=== PATIENT | female | born 1945 | race Caucasian/White ===

== ENCOUNTER 2017-12-31 08:36 | Day surgery (SDC) | payer MEDICARE, OTHER ==
[~2017-12-31] VITALS: Ht 157.5 cm; Wt 76.7 kg
[~2017-12-31 08:36] MED LIST: Adult Low Dose81 MG PO; LOSA50 PO; NEOPOLHYD OP; SERT50 PO
== END 2017-12-31 22:52 | disposition home or self-care (01) ==
LOC: ORSCMMR 08:36
PROVIDERS: Internal Medicine Gastroenterology
PROC: 0DBN8ZX Excision of Sigmoid Colon, Via Natural or Artificial Opening Endoscopic, Diagnostic (ICD-10-PCS; principal; 2017-12-31 09:30)
PROC: 0DBK8ZX Excision of Ascending Colon, Via Natural or Artificial Opening Endoscopic, Diagnostic (ICD-10-PCS; principal; 2017-12-31 09:30)
PROC: 0DBE8ZX Excision of Large Intestine, Via Natural or Artificial Opening Endoscopic, Diagnostic (ICD-10-PCS; principal; 2017-12-31 09:30)
PROC: 0DBL8ZX Excision of Transverse Colon, Via Natural or Artificial Opening Endoscopic, Diagnostic (ICD-10-PCS; principal; 2017-12-31 09:30)
DX: R19.4 Change in bowel habit (principal); D12.2 Benign neoplasm of ascending colon; K63.5 Polyp of colon; K52.9 Noninfective gastroenteritis and colitis, unspecified; R15.9 Full incontinence of feces; K57.30 Diverticulosis of large intestine without perforation or abscess without bleeding; I10 Essential (primary) hypertension; F41.8 Other specified anxiety disorders; Z79.899 Other long term (current) drug therapy; Z79.82 Long term (current) use of aspirin; F17.210 Nicotine dependence, cigarettes, uncomplicated
CPT/HCPCS: 88305; J7120

== ENCOUNTER 2021-12-31 16:10 | Inpatient (IN) | payer OTHER ==
[~2021-12-31] VITALS: Ht 157.5 cm; Wt 73.0 kg
[2021-12-31 16:39] LABS: BASOPHILS ABSOLUTE AUTO 0.07 K/mm3 (0.00-0.23); BASOPHILS PERCENT AUTO 1 % (0-2); EOSINOPHILS PERCENT AUTO 1 % (0-6); Hematocrit 46.3 % (33.0-51.0); IMMATURE GRAN ABSOLUTE AUTO 0.04 K/mm3 (0.00-0.10); IMMATURE GRAN PERCENT AUTO 0 % (0-1); LYMPHOCYTES ABSOLUTE AUTO 2.57 K/mm3 (0.84-5.20); LYMPHOCYTES PERCENT AUTO 24 % (21-46); MONOCYTES ABSOLUTE AUTO 0.68 K/mm3 (0.16-1.47); MONOCYTES PERCENT AUTO 6 % (4-13); Mean Corpuscular HGB 29.4 pg (26.0-34.0); Mean Corpuscular HGB Conc 32.4 g/dL (31.5-36.5); Mean Corpuscular Volume 91 fL (80-100); Mean Platelet Volume 11.8 fL (9.1-12.4); NEUTROPHILS ABSOLUTE AUTO 7.13 K/mm3 (1.96-9.15); NEUTROPHILS PERCENT AUTO 67 % (41-73); Platelet Count 216 K/mm3 (150-400); RDW Coefficient Variation 13.2 % (11.7-14.2); RDW Standard Deviation 44.6 fL (35.1-46.3); White Blood Cell Count 10.59 K/mm3 (4.00-11.30)
[2021-12-31 16:58] LABS: Alanine Aminotransfer (ALT/SGP 22 U/L (12-78); Albumin, Blood 3.3 g/dL (3.4-5.0); Albumin/Globulin Ratio 0.9 (0.8-1.8); Alk Phos 89 U/L (50-136); Anion Gap 5 mmol/L (6-16); Aspartate Aminotrans (AST/SGOT 11 U/L (12-37); Bilirubin, Total 0.3 mg/dL (0.1-1.0); Blood Urea Nitrogen 17 mg/dL (8-24); Bun/Creatinine Ratio 20.4 (12.0-20.0); CO2, Blood 29 mmol/L (21-32); Chloride, Blood 108 mmol/L (98-108); Creatinine, Blood 0.83 mg/dL (0.40-1.00); Globulin, Blood 3.6 g/dL (2.2-4.0); Glomerular Filtration Rate >60 (60-); Glucose, Blood 141 mg/dL (70-99); Sodium, Blood 142 mmol/L (136-145); Total Protein, Blood 6.9 g/dL (6.4-8.2)
[2021-12-31 17:24] LABS: Source, Urine Clean Catch
[2021-12-31] MEDS ORDERED: ATOR20 PO (17:24)
[2021-12-31 17:30] LABS: Appearance, Urine Clear (Clear); Bilirubin, Urine Neg (Neg); Blood, Urine 1+ (Neg); Color, Urine Yellow (P-Yellow); Glucose Qualitative, Urine Neg (Neg); Ketones, Urine Neg (Neg); Leukocyte Esterase, Urine 2+ (Neg); Nitrite, Urine Neg (Neg); Protein, Urine Neg (Neg); Specific Gravity, Urine 1.025 (1.003-1.022); Urobilinogen, Urine 1+ (Normal)
[2021-12-31 17:48] LABS: Red Blood Cells, Urine 0-2 /hpf (0-2); Squamous Epithelial Cells Few /hpf (Few)
[2021-12-31 17:49] LABS: Bacteria Many /hpf; Mucus Mod (0-Heavy)
[2021-12-31 21:42] LABS: Influenza A, PCR NEGATIVE (NEGATIVE); Influenza B, PCR NEGATIVE (NEGATIVE); Resp Syncytial Virus, PCR NEGATIVE (NEGATIVE)
[2021-12-31 21:50] LABS: SARS-Cov-2 (COVID-19) PCR, MMC POSITIVE (NEGATIVE)
[2022-01-01 05:06] LABS: BASOPHILS ABSOLUTE AUTO 0.04 K/mm3 (0.00-0.23); BASOPHILS PERCENT AUTO 0 % (0-2); EOSINOPHILS ABSOLUTE AUTO 0.09 K/mm3 (0.00-0.68); EOSINOPHILS PERCENT AUTO 1 % (0-6); Hematocrit 46.4 % (33.0-51.0); Hemoglobin 14.7 g/dL (11.5-16.0); IMMATURE GRAN ABSOLUTE AUTO 0.06 K/mm3 (0.00-0.10); IMMATURE GRAN PERCENT AUTO 1 % (0-1); LYMPHOCYTES ABSOLUTE AUTO 1.46 K/mm3 (0.84-5.20); LYMPHOCYTES PERCENT AUTO 13 % (21-46); MONOCYTES ABSOLUTE AUTO 0.27 K/mm3 (0.16-1.47); MONOCYTES PERCENT AUTO 2 % (4-13); Mean Corpuscular HGB 29.3 pg (26.0-34.0); Mean Corpuscular HGB Conc 31.7 g/dL (31.5-36.5); Mean Corpuscular Volume 93 fL (80-100); Mean Platelet Volume 11.8 fL (9.1-12.4); NEUTROPHILS ABSOLUTE AUTO 9.73 K/mm3 (1.96-9.15); NEUTROPHILS PERCENT AUTO 84 % (41-73); Platelet Count 187 K/mm3 (150-400); RDW Coefficient Variation 13.5 % (11.7-14.2); RDW Standard Deviation 45.5 fL (35.1-46.3); Red Blood Cell Count 5.01 M/mm3 (3.80-5.20); White Blood Cell Count 11.65 K/mm3 (4.00-11.30)
[2022-01-01 05:46] LABS: Alanine Aminotransfer (ALT/SGP 22 U/L (12-78); Albumin, Blood 3.1 g/dL (3.4-5.0); Albumin/Globulin Ratio 0.8 (0.8-1.8); Alk Phos 88 U/L (50-136); Anion Gap 7 mmol/L (6-16); Aspartate Aminotrans (AST/SGOT 15 U/L (12-37); Bilirubin, Total 0.2 mg/dL (0.1-1.0); Blood Urea Nitrogen 17 mg/dL (8-24); Bun/Creatinine Ratio 29.4 (12.0-20.0); CHOL/HDL RATIO 3.5; CO2, Blood 25 mmol/L (21-32); Calcium, Blood 8.8 mg/dL (8.5-10.1); Chloride, Blood 109 mmol/L (98-108); Cholesterol 154 mg/dL (50-200); Creatinine, Blood 0.58 mg/dL (0.40-1.00); Globulin, Blood 3.7 g/dL (2.2-4.0); Glomerular Filtration Rate >60 (60-); Glucose, Blood 147 mg/dL (70-99); HDL Cholesterol 44 mg/dL (>39); Low Density Lipoprotein Chol 86 mg/dL (0-110); Potassium, Blood 4.4 mmol/L (3.5-5.5); Sodium, Blood 141 mmol/L (136-145); Total Protein, Blood 6.8 g/dL (6.4-8.2); Triglycerides 118 mg/dL (30-160); Very Low Density Lipoprot Chol 23 mg/dL (6-32)
--- NOTE | 2022-01-01 06:02 | NUR ---
SHIFT SUMMARY: PATIENT ADMITTED FROM ED CALM, COOPERATIVE, AND PLEASANT. SLIGHT LEFT SIDED FACIAL DROP NO OTHER NEURO DEFECITS PRESENT. 2LNC SAT 100% REMOVED NC SAT 98% EXP WHEEZES NOTED. DYSPNEA WITH EXERTION. COARSE NON PRODUCTIVE COUGH. TELE=NSR/SB. LAB CALLED POSITIVE COVID RESULTS. MD CONTACTED AND NEW ORDERS OBTAINED. PATIENT IS NOW ON CONTINIOUS BIOX. SATS HAVE REMAINED > 94% ON RA. MEDICATIONS ADMINSITERED PER EMAR. PRN GUAIFENESIN GIVEN. STAT DDIMER RESULT 0.74 CALLED INTO [facility]TER MD PER DR. MALAGON REQUEST WHEN ORDER RECEIVED. NO NEW ORDERS.
--- NOTE | 2022-01-01 17:38 | NUR ---
PATIENT ADMITTED WITH LEFT SIDED FACIAL DROOP- WAS FOUND TO HAVE COVID. CT DETERMINED THAT THERE IS A SUBACUTE INFARCT. PATIENT HAD AN ECHO TODAY, RESULTS SHOW SOME CARDIAC CONDITIONS. PT WAS UP AND WORKED WITH THE PATIENT TODAY. THEY SAID THAT SHE "DID GREAT". SHE SAT UP IN THE CHAIR FOR A TIME AFTER HER PT SESSION. THE PATIENTS OXYGEN LEVEL SUSTAINS AT NORMAL WITH NO OXYGEN ON. SHE REMOVES HER NC FREQUENTLY. LUNGS DO SOUND CONGESTED UPON AUSCULTATION AND SHE IS COUGHING CLEAR SPUTUM. PATIENTS BP HAS BEEN ELEVATED. EDUCATION ON THE RELATIONSHIP BETWEEN HTN AND STROKE WAS VERBALLY DISCUSSED WITH PATIENT. CAROTOID DUPLEX STUDY WAS DONE TODAY, WITH ABNORMALITIES FOUND. PATIENT REMAINS IN [facility] AND WOULD LIKE TO KNOW WHEN SHE MAY POSSIBLY BE DISCHARGED.
--- NOTE | 2022-01-02 05:46 | NUR ---
SHIFT SUMMARY: NO SIGNIFICANT EVENTS ON NOC. PATIENT REAMINS WITH COUGH SCANT SPUTUM PRODUCED. EXP WHEEZE NOTED TO BILATERAL BASES, COARSE UPPER LOBES. NASAL DRAINAGE. RA-2L SAT >94%. NO COMPLAINTS OF PAIN, EXPERIINCED INDIGESTION MD CONTACTED AND NEW ORDER OBTAINED, TREATED PER EMAR. PATIENT IS EAGER TO DC.
[2022-01-02] MEDS ORDERED: PROAIR DIGIHAL90 MCG INH (12:13)
[2022-01-02] MEDS ORDERED: Aspir 8181 MG PO (12:14)
[2022-01-02] MEDS ORDERED: Mucus Relief400 MG PO (12:15)
[2022-01-02] MEDS ORDERED: LOSA50 PO (12:17)
--- NOTE | 2022-01-02 17:40 | NUR ---
PATIENT DISCHARGED THIS SHIFT AT 1630 VIA WHEELCHAIR TO CAR WITH FAMILY. PATIENT HAD OXYGEN AND BELONGINGS WITH THEM AT DISCHARGE. THE PATIENT UNDERSTOOD DISCHARGE MEDICATIONS AND INSTRUCTIONS GIVEN. VSS. NOTHING FURTHER TO REPORT.
== END 2022-01-02 17:02 | disposition home or self-care (01) | DRG 64 ==
LOC: ER 16:10 → MEDS 20:10
PROVIDERS: Emergency Medicine; Physician Assistant; ADMIT Internal Medicine
PROC: 8E0ZXY6 Isolation (ICD-10-PCS; principal; 2021-12-31)
PROC: 3E03329 Introduction of Other Anti-infective into Peripheral Vein, Percutaneous Approach (ICD-10-PCS; 2021-12-31)
PROC: XW033E5 Introduction of Remdesivir Anti-infective into Peripheral Vein, Percutaneous Approach, New Technology Group 5 (ICD-10-PCS; 2021-12-31)
PROC: 3E0DX3Z Introduction of Anti-inflammatory into Mouth and Pharynx, External Approach (ICD-10-PCS; 2021-12-31)
DX: I63.9 Cerebral infarction, unspecified (principal); U07.1 COVID-19; I10 Essential (primary) hypertension; E78.5 Hyperlipidemia, unspecified; Z66 Do not resuscitate; I65.22 Occlusion and stenosis of left carotid artery; J44.9 Chronic obstructive pulmonary disease, unspecified; R29.810 Facial weakness; F17.210 Nicotine dependence, cigarettes, uncomplicated; R09.02 Hypoxemia; F32.A Depression, unspecified; F41.9 Anxiety disorder, unspecified; Z90.710 Acquired absence of both cervix and uterus; Z79.899 Other long term (current) drug therapy; Z88.2 Allergy status to sulfonamides
CPT/HCPCS: 0241U; 36415; 70450; 71045; 80053; 80061; 81001; 82947; 83036; 84443; 85025; 85379; 87077; 87086; 87186; 93005; 93010; 93306; 93880; 94640; 94760; 94761; 94762; 96374; 97116; 97162; 99285-25; A9270; J0248; J0696; J1650

== ENCOUNTER 2022-08-03 10:05 | Day surgery (SDC) | payer MEDICARE, OTHER ==
[~2022-08-03] VITALS: Ht 157.5 cm; Wt 70.7 kg
[~2022-08-03 10:05] MED LIST changes: +ATOR20 PO; +Aspir 8181 MG PO; +Mucus Relief400 MG PO; +PROAIR DIGIHAL90 MCG INH
[2022-08-03] MEDS ORDERED: XARELTO20 MG PO (10:28)
[2022-08-03] MEDS ORDERED: METO50ER PO (10:28)
--- NOTE | 2022-08-03 14:15 | NUR ---
08/03/22 1415 Man Salas PATIENT'S BLOOD PRESSURE RETURNED TO PRE-OP LEVELS PRIOR TO DISCHARGE, BUT PATIENT WAS STILL HYPERTENSIVE. ADVISED TO MONITOR BLOOD PRESSURE AND FOLLOW UP WITH PCP.
== END 2022-08-03 12:30 | disposition home or self-care (01) ==
LOC: ORSCSDS 10:05
PROVIDERS: Ophthalmology
PROC: 08RJ3JZ Replacement of Right Lens with Synthetic Substitute, Percutaneous Approach (ICD-10-PCS; principal; 2022-08-03 11:30)
DX: H25.11 Age-related nuclear cataract, right eye (principal); I10 Essential (primary) hypertension; J44.9 Chronic obstructive pulmonary disease, unspecified; F17.210 Nicotine dependence, cigarettes, uncomplicated; F41.8 Other specified anxiety disorders; Z86.73 Personal history of transient ischemic attack (TIA), and cerebral infarction without residual deficits; Z86.16 Personal history of COVID-19; Z79.899 Other long term (current) drug therapy; Z79.01 Long term (current) use of anticoagulants; Z79.82 Long term (current) use of aspirin
CPT/HCPCS: J2001; J2250; J3010; J3301; J7040; V2632

== ENCOUNTER 2022-08-17 10:21 | Day surgery (SDC) | payer MEDICARE, OTHER ==
[~2022-08-17] VITALS: Ht 157.5 cm; Wt 69.4 kg
[~2022-08-17 10:21] MED LIST changes: +METO50ER PO; +XARELTO20 MG PO
--- NOTE | 2022-08-17 10:58 | NUR ---
08/17/22 1058 Eloise Estrada INTO LEFT EYE AT 1042 PLEDGET INTO LEFT EYE AT 1044 INSERTED BY NABEEL ACUNA
--- NOTE | 2022-08-17 12:35 | NUR ---
08/17/22 1235 Yariel Hunt LATE ENTRY, PT D/CD AT 1207, NO C/O PAIN , NV, DIZINESS, VS WNL, RESP CTA ON RA, PERSONAL BELONGINGS GIVEN BACK TO PT, PT D/C'D VIA WC TO CAR DAUGHTER, PT VU D/C INSTRUCTIONS. DENIES ANY OTHER NEEDS.
== END 2022-08-17 12:07 | disposition home or self-care (01) ==
LOC: ORSCSDS 10:21
PROVIDERS: Ophthalmology
PROC: 08DK3ZZ Extraction of Left Lens, Percutaneous Approach (ICD-10-PCS; principal; 2022-08-17 11:30)
DX: H25.12 Age-related nuclear cataract, left eye (principal); I10 Essential (primary) hypertension; J44.9 Chronic obstructive pulmonary disease, unspecified; I63.9 Cerebral infarction, unspecified; I49.9 Cardiac arrhythmia, unspecified; K21.9 Gastro-esophageal reflux disease without esophagitis; Z86.16 Personal history of COVID-19; F41.8 Other specified anxiety disorders; Z79.82 Long term (current) use of aspirin; Z79.899 Other long term (current) drug therapy
CPT/HCPCS: J2001; J2250; J3010; J3301; J7040; V2632

== ENCOUNTER 2022-11-15 15:30 | Emergency (ER) | payer MEDICARE, OTHER ==
[~2022-11-15] VITALS: Ht 167.6 cm; Wt 71.2 kg
[2022-11-15 16:58] LABS: BASOPHILS ABSOLUTE AUTO 0.05 K/mm3 (0.00-0.23); BASOPHILS PERCENT AUTO 1 % (0-2); EOSINOPHILS ABSOLUTE AUTO 0.11 K/mm3 (0.00-0.68); EOSINOPHILS PERCENT AUTO 1 % (0-6); Hemoglobin 6.7 g/dL (11.5-16.0); IMMATURE GRAN ABSOLUTE AUTO 0.02 K/mm3 (0.00-0.10); IMMATURE GRAN PERCENT AUTO 0 % (0-1); LYMPHOCYTES ABSOLUTE AUTO 1.87 K/mm3 (0.84-5.20); LYMPHOCYTES PERCENT AUTO 21 % (21-46); MONOCYTES PERCENT AUTO 6 % (4-13); Mean Corpuscular HGB 25.8 pg (26.0-34.0); Mean Corpuscular HGB Conc 29.1 g/dL (31.5-36.5); Mean Corpuscular Volume 89 fL (80-100); Mean Platelet Volume 11.6 fL (9.1-12.4); NEUTROPHILS ABSOLUTE AUTO 6.19 K/mm3 (1.96-9.15); NEUTROPHILS PERCENT AUTO 71 % (41-73); Platelet Count 285 K/mm3 (150-400); RDW Coefficient Variation 17.4 % (11.7-14.2); RDW Standard Deviation 55.7 fL (35.1-46.3); White Blood Cell Count 8.74 K/mm3 (4.00-11.30)
[2022-11-15 17:29] LABS: Albumin/Globulin Ratio 0.8 (0.8-1.8); Bilirubin, Total 0.3 mg/dL (0.1-1.0); Bun/Creatinine Ratio 34.3 (12.0-20.0); Calcium, Blood 8.4 mg/dL (8.5-10.1); Creatinine, Blood 0.67 mg/dL (0.40-1.00); Globulin, Blood 3.6 g/dL (2.2-4.0); Total Protein, Blood 6.6 g/dL (6.4-8.2)
[2022-11-15 17:58] LABS: Percent Saturation 8.1 % (15.0-50.0)
[2022-11-15 21:06] LABS: Influenza A, PCR NEGATIVE (NEGATIVE); Influenza B, PCR NEGATIVE (NEGATIVE); Resp Syncytial Virus, PCR NEGATIVE (NEGATIVE); SARS-Cov-2 (COVID-19) PCR, MMC NEGATIVE (NEGATIVE)
== END 2022-11-15 22:20 | disposition short-term general hospital (02) ==
LOC: ER 15:30
PROVIDERS: Physician Assistant; Student in an Organized Health Care Education/Training Program
DX: D62 Acute posthemorrhagic anemia (principal); R47.81 Slurred speech; R29.810 Facial weakness; T45.515A Adverse effect of anticoagulants, initial encounter; F17.200 Nicotine dependence, unspecified, uncomplicated; Z86.73 Personal history of transient ischemic attack (TIA), and cerebral infarction without residual deficits; Z79.02 Long term (current) use of antithrombotics/antiplatelets; Z79.82 Long term (current) use of aspirin
CPT/HCPCS: 0241U; 36415; 70450; 80053; 82607; 82728; 82746; 83540; 83550; 85025; 86850; 86900; 86901; 86923; 93005; 93010; A9270; C9113; J7030; P9016

== ENCOUNTER 2023-02-12 15:18 | Inpatient (IN) | payer MEDICARE, OTHER ==
[~2023-02-12] VITALS: Ht 157.5 cm; Wt 66.7 kg
[~2023-02-12 15:18] MED LIST changes: +LOSA25 PO
[2023-02-12 16:17] LABS: Magnesium, Blood 2.4 mg/dL (1.6-2.4); Phosphorus, Blood 3.1 mg/dL (2.5-4.9)
[2023-02-12 22:08] VITALS: BP 106/60
[2023-02-13 01:58] LABS: Calcium, Blood 8.8 mg/dL (8.5-10.1); Creatinine, Blood 0.69 mg/dL (0.40-1.00); Potassium, Blood 3.9 mmol/L (3.5-5.5)
[2023-02-13 04:46] VITALS: BP 107/69
[2023-02-13 07:45] VITALS: BP 146/74
--- NOTE | 2023-02-13 07:58 | NUR ---
SHIFT SUMMARY PT IS A/Ox4 AND IS COOPERATIVE WITH CARE PROVIDED BY MEMBERS OF STAFF. ANSWERS QUESTIONS APPROPRIATELY AND ABLE TO MAKE NEEDS KNOWN. NO ACUTE EVENTS OVER NIGHT. MAINTAINS SPO2 >90% ON RA WITH SOB NOTED WITH EXERTION, BUT RECOVERS QUICKLY. PT REPORTS SHE HAS BEEN A 1.5PPD SMOKER FOR 50'S BUT HAS RECENTLY QUIT THIS LAST WEEK. CARDIAC BOWEN, PT HAS BEEN AFIB 110'S-120'S WITH THE OCCASTIONAL TOUCH INTO THE 130-140'S ESPECIALLY WITH ABULATION, BUT DOES NOT SUSTAIN WHEN AT REST. NO C/O OF CP OR PRESSURE T/O THE NIGHT. EDEMA NOTED IN LLE NOTED. SBP RANGING IN THE 100-110'S. ABLE TO AMBULATE TO BSC WITH SBA. NO NEW ORDERS AT THIS TIME. WILL REPORT TO DAY SHIFT RN. SHELTON T/O THE SHIFT
[2023-02-13 11:38] VITALS: BP 127/91
[2023-02-13 14:30] VITALS: BP 114/64
[2023-02-13 16:37] VITALS: BP 105/75
--- NOTE | 2023-02-13 18:01 | NUR ---
SHIFT SUMMARY; ASSUMED CARE AT 0700. A/A/OX4, REPOSITIONS SELF IN BED NEEDED, SBA TO BEDSIDE COMMODE MULTIPLE TIMES DURING SHIFT. REMAINS IN AFIB WITH HR 120-140'S DURING SHIFT. MEDICATED PER ORDERS FROM DR. JEAN BAPTISTE WITH LOPRESSOR THEN CARDIZEM BOLUS WITH NO RESULTS. CARDIZEM DRIP STARTED PER ORDERS WILL TITRATE ORDERED. CARDIZEM INCREASED TO 20ML/HR WITH HR REMAINING 120-140. DR. JEAN BAPTISTE NOTIFIED, CARIOLOGY CONSULT CALLED IN. EVALUATED TO SHIP ERECTOR IN AFTERNOON. CONTINUE WITH CARDIZEM, WILL ADJUST LASIX. EDEMA 4+ BLE, DENIES CP, SOB AT TIMES WITH WHEEZING. BREATHING TREATMENTS PER EMAR. PLEASANT AND COOPERATIE WITH CARE, WILL CONTINUE TO MONITOR AND TREAT UNTIL CHANGE OF SHIFT.
[2023-02-13 19:56] VITALS: BP 105/64
[2023-02-14 04:11] LABS: Albumin, Blood 2.9 g/dL (3.4-5.0); Anion Gap 2 mmol/L (6-16); Blood Urea Nitrogen 34 mg/dL (8-24); Bun/Creatinine Ratio 40.8 (12.0-20.0); CO2, Blood 27 mmol/L (21-32); Calcium, Blood 8.6 mg/dL (8.5-10.1); Chloride, Blood 110 mmol/L (98-108); Creatinine, Blood 0.83 mg/dL (0.40-1.00); Glomerular Filtration Rate 73 (60-); Glucose, Blood 117 mg/dL (70-99); Magnesium, Blood 2.1 mg/dL (1.6-2.4); Potassium, Blood 3.5 mmol/L (3.5-5.5); Sodium, Blood 139 mmol/L (136-145)
[2023-02-14 05:16] VITALS: BP 114/98
--- NOTE | 2023-02-14 05:35 | NUR ---
SHIFT SUMMARY A/OX4, SBA TO BSC. TELE AFIB 120-140S, CARDIZEM GTT AT 20 T/O SHIFT. DENIES CHEST PAIN/PRESSURE. SPO2 >92% ON RA. VSS, NO ACUTE CHANGES AT THIS TIME. BED IN LOWEST POSITION WITH CALL LIGHT IN REACH. WILL CONTINUE TO MONITOR AND REPORT TO ONCOMING RN.
[2023-02-14 07:38] VITALS: BP 111/80
[2023-02-14 12:19] VITALS: BP 103/76
[2023-02-14 15:59] VITALS: BP 103/84
--- NOTE | 2023-02-14 16:08 | NUR ---
TELEPHONE CALL TO DR. MARTINEZ, POSSIBLE 12 BEAT RUN OF VTACH PER TELE. VERBAL ORDER TO STOP CARDIZEM DRIP AT THIS TIME. CURRENT HR 70-90, WILL CONTINUE TO MONITOR.
--- NOTE | 2023-02-14 17:12 | NUR ---
SHIFT SUMMARY; ASSUMED CARE AT 0700. A/A/OX4, HR REMAINS 120-140 AFIB. DENIES CP OR SOB. L/S DIM T/O. 20ML/HR CARDIZEM IV DRIP AT START OF SHIFT, DECREASED TO 10ML/HR IN AFTERNOON FOR HR 90-115. 12 BEAT RUN OF VTACH AND HR TOUCHING DOWN TO 60'S THEN BACK UP TO 90'S. NOTIFIED CARDIOLOGY. CARDIZEM IV STOPPED PER VERBAL ORDER FROM DR. SOLORZANO. USES BEDSIDE COMMODE WITH SBA, REPOSITIONS SELF IN BED, NO ACUTE DISTRESS. WILL CONTINUE TO MONITOR AND TREAT UNTIL CHANGE OF SHIFT.
[2023-02-14 20:27] VITALS: BP 103/65
[2023-02-14 23:10] VITALS: BP 141/89
[2023-02-15 03:09] VITALS: BP 111/89
[2023-02-15 05:18] LABS: Anion Gap 3 mmol/L (6-16); Blood Urea Nitrogen 39 mg/dL (8-24); Bun/Creatinine Ratio 41.4 (12.0-20.0); CO2, Blood 27 mmol/L (21-32); Calcium, Blood 8.5 mg/dL (8.5-10.1); Chloride, Blood 110 mmol/L (98-108); Creatinine, Blood 0.94 mg/dL (0.40-1.00); Glomerular Filtration Rate 63 (60-); Glucose, Blood 112 mg/dL (70-99); Magnesium, Blood 2.2 mg/dL (1.6-2.4); Phosphorus, Blood 5.4 mg/dL (2.5-4.9); Potassium, Blood 3.7 mmol/L (3.5-5.5); Sodium, Blood 140 mmol/L (136-145)
--- NOTE | 2023-02-15 06:19 | NUR ---
PATIENT AOX4 AND FOLLOWS COMMANDS. AFIB RVR. DILT GTT RESTARTED OVERNIGHT AND TITRATED TO 20. PRN METOPROLOL GIVEN X2. NO PAUSES OR RUNS OF VTACH. 2L NC. PATIENT TOLERATING DIET WITHOUT N/V.
[2023-02-15 07:44] VITALS: BP 107/63
[2023-02-15 11:57] VITALS: BP 89/59
[2023-02-15 15:16] VITALS: BP 102/72
--- NOTE | 2023-02-15 18:05 | NUR ---
SHIFT SUMMARY; ASSUMED CARE AT 0700. A/A/OX4 DURING SHIFT. REPOSITIONS SELF NEEDED, SBA TO COMMODE. CARDIZEM INFUSING AT 20MG/HR AT START OF SHIFT, TITRATED DOWN TO 10ML/HR IN AFTERNOON. HR 90-110, A FIB. EVALUATED BY BOSOM PRESSER TODAY, WILL PLAN FOR PACEMAKER SUNDAY. BLOOD PRESSURE STABLE, 2L 02 VIA NC FOR FEELING SOB, SATS 97%. L/S DIM T/O. CONTINUING LASIX PER EMAR. NO ACUTE CHANGES, WILL CONTINUE TO MONITOR AND TREAT UNTIL CHANGE OF SHIFT.
[2023-02-15 20:40] VITALS: BP 120/76
[2023-02-16] VITALS (10 sets, daily range): BP systolic 71–132; BP diastolic 50–86
[2023-02-16 04:38] LABS: Albumin, Blood 2.9 g/dL (3.4-5.0); Anion Gap 1 mmol/L (6-16); Blood Urea Nitrogen 37 mg/dL (8-24); Bun/Creatinine Ratio 45.3 (12.0-20.0); CO2, Blood 32 mmol/L (21-32); Calcium, Blood 8.6 mg/dL (8.5-10.1); Chloride, Blood 107 mmol/L (98-108); Creatinine, Blood 0.82 mg/dL (0.40-1.00); Glomerular Filtration Rate 74 (60-); Glucose, Blood 107 mg/dL (70-99); Phosphorus, Blood 3.7 mg/dL (2.5-4.9); Potassium, Blood 3.5 mmol/L (3.5-5.5); Sodium, Blood 140 mmol/L (136-145)
--- NOTE | 2023-02-16 04:52 | NUR ---
NO CHANGES OVERNIGHT, VSS, TMAX 99.9, CARDIZEM GTT AT 10
[2023-02-16 08:16] LABS: Hematocrit 29.7 % (33.0-51.0); Hemoglobin 8.6 g/dL (11.5-16.0); Mean Platelet Volume 10.1 fL (9.1-12.4); Platelet Count 257 K/mm3 (150-400)
[2023-02-16 08:37] LABS: International Normalized Ratio 1.18; Prothrombin Time Results 12.3 Sec (9.7-11.5)
[2023-02-16 08:41] LABS: Anti-Xa UFH, PHA Monitoring 1.06 IU/mL
--- NOTE | 2023-02-16 14:33 | NUR ---
PAUSE/CARDIZEM STANDBY CALL FROM [employer] REPORTING 2.66 SEC PAUSE. MONITOR SHOWING AFIB HR 70'S-110'S. PT DENIES SYMPTOMS OTHER THAN IRRITIABILITY. CARDIZEM GTT RUNNING AT 5ML/HR PLACED ON STANDBY. VSS.
--- NOTE | 2023-02-16 18:19 | NUR ---
END OF SHIFT PT A&O x4. VSS. SPO2 >92% ON 2L N/C. NO C/O CP OR SOB AT THIS TIME. AFIB HR 70'S-110'S. HEPARIN GTT INFUSING PER ORDERS. CARDIZEM GTT REMAINS ON STANDBY. PT 1 PERSON ASSIST TO BSC.
[2023-02-17 02:07] LABS: Albumin, Blood 2.9 g/dL (3.4-5.0); Anion Gap 1 mmol/L (6-16); BASOPHILS ABSOLUTE AUTO 0.08 K/mm3 (0.00-0.23); BASOPHILS PERCENT AUTO 1 % (0-2); Blood Urea Nitrogen 29 mg/dL (8-24); Bun/Creatinine Ratio 39.8 (12.0-20.0); CO2, Blood 33 mmol/L (21-32); Chloride, Blood 106 mmol/L (98-108); Creatinine, Blood 0.73 mg/dL (0.40-1.00); EOSINOPHILS ABSOLUTE AUTO 0.28 K/mm3 (0.00-0.68); EOSINOPHILS PERCENT AUTO 2 % (0-6); Glomerular Filtration Rate 85 (60-); Glucose, Blood 131 mg/dL (70-99); Hematocrit 31.8 % (33.0-51.0); Hemoglobin 9.3 g/dL (11.5-16.0); IMMATURE GRAN ABSOLUTE AUTO 0.14 K/mm3 (0.00-0.10); IMMATURE GRAN PERCENT AUTO 1 % (0-1); LYMPHOCYTES ABSOLUTE AUTO 2.25 K/mm3 (0.84-5.20); LYMPHOCYTES PERCENT AUTO 17 % (21-46); MONOCYTES ABSOLUTE AUTO 1.53 K/mm3 (0.16-1.47); MONOCYTES PERCENT AUTO 12 % (4-13); Mean Corpuscular HGB 22.3 pg (26.0-34.0); Mean Corpuscular HGB Conc 29.2 g/dL (31.5-36.5); Mean Corpuscular Volume 76 fL (80-100); Mean Platelet Volume 10.7 fL (9.1-12.4); NEUTROPHILS ABSOLUTE AUTO 8.81 K/mm3 (1.96-9.15); NEUTROPHILS PERCENT AUTO 67 % (41-73); Phosphorus, Blood 3.1 mg/dL (2.5-4.9); Platelet Count 257 K/mm3 (150-400); Potassium, Blood 3.6 mmol/L (3.5-5.5); RDW Coefficient Variation 18.6 % (11.7-14.2); RDW Standard Deviation 51.2 fL (35.1-46.3); Red Blood Cell Count 4.17 M/mm3 (3.80-5.20); Sodium, Blood 140 mmol/L (136-145); White Blood Cell Count 13.09 K/mm3 (4.00-11.30)
--- NOTE | 2023-02-17 06:19 | NUR ---
10L UO IN 24 HR, 2LPM NC FOR PT COMFORT, VSS, TMAX 100.5, HEPARIN GTT AT 17 UNITS, AFIB 90'S TO 110'S
[2023-02-17 07:34] VITALS: BP 126/95
[2023-02-17 11:16] VITALS: BP 103/67
[2023-02-17 15:11] VITALS: BP 119/63
--- NOTE | 2023-02-17 17:37 | NUR ---
SHIFT SUMMARY PT A&O X4. VSS. SPO2 >92% ON 2L N/C. AFIB WITH HR OF 70'S-110'S. NO C/O CHEST PAIN OR PRESSURE. HEPARIN GTT INFUSING PER ORDERS. PT IS 1 PERSON STANDBY ASSIST TO BSC. PT HAS NO OTHER COMPLAINTS.
[2023-02-17 20:11] VITALS: BP 121/74
[2023-02-17 23:37] VITALS: BP 121/65
[2023-02-18 03:54] VITALS: BP 91/61
[2023-02-18 04:44] LABS: BASOPHILS PERCENT AUTO 1 % (0-2); EOSINOPHILS PERCENT AUTO 1 % (0-6); Hematocrit 35.2 % (33.0-51.0); Hemoglobin 10.2 g/dL (11.5-16.0); IMMATURE GRAN ABSOLUTE AUTO 0.09 K/mm3 (0.00-0.10); IMMATURE GRAN PERCENT AUTO 1 % (0-1); LYMPHOCYTES ABSOLUTE AUTO 2.64 K/mm3 (0.84-5.20); LYMPHOCYTES PERCENT AUTO 19 % (21-46); MONOCYTES ABSOLUTE AUTO 1.81 K/mm3 (0.16-1.47); MONOCYTES PERCENT AUTO 13 % (4-13); Mean Corpuscular HGB 22.1 pg (26.0-34.0); Mean Corpuscular Volume 76 fL (80-100); Mean Platelet Volume 10.7 fL (9.1-12.4); NEUTROPHILS ABSOLUTE AUTO 9.18 K/mm3 (1.96-9.15); NEUTROPHILS PERCENT AUTO 66 % (41-73); Platelet Count 278 K/mm3 (150-400); RDW Coefficient Variation 18.7 % (11.7-14.2); Red Blood Cell Count 4.61 M/mm3 (3.80-5.20); White Blood Cell Count 14.02 K/mm3 (4.00-11.30)
[2023-02-18 05:04] LABS: Albumin, Blood 2.9 g/dL (3.4-5.0); Anion Gap 0 mmol/L (6-16); Blood Urea Nitrogen 23 mg/dL (8-24); Bun/Creatinine Ratio 33.2 (12.0-20.0); CO2, Blood 33 mmol/L (21-32); Calcium, Blood 8.9 mg/dL (8.5-10.1); Chloride, Blood 104 mmol/L (98-108); Creatinine, Blood 0.69 mg/dL (0.40-1.00); Glomerular Filtration Rate 90 (60-); Glucose, Blood 110 mg/dL (70-99); Phosphorus, Blood 3.4 mg/dL (2.5-4.9); Potassium, Blood 3.7 mmol/L (3.5-5.5); Sodium, Blood 137 mmol/L (136-145)
--- NOTE | 2023-02-18 06:42 | NUR ---
SHIFT SUMMARY PT A&Ox4, CALLS AND COMMUNICATES NEEDS APPROPRIATELY. BP STABLE, AFIB 80-110's, DENIES CP/PRESSURE. SpO2> 92% 2L VIA NC, DENIES SOB. PT SBA TO BSC FOR VOIDS, NO BM THIS SHIFT. PT WITH URINARY FREQUENCY AT START OF SHIFT SECONDARY TO LASIX. HEPARIN gtt @ 17. NO OTHER EVENTS, WILL REPORT TO ONCOMING RN.
[2023-02-18 08:05] VITALS: BP 107/64
[2023-02-18 12:11] VITALS: BP 97/57
[2023-02-18 16:46] VITALS: BP 127/79
--- NOTE | 2023-02-18 17:01 | NUR ---
SHIFT SUMMARY: PT A&Ox4, COOPERATIVE W/CARE, ABLE TO MAKE NEEDS KNOWN. O2 SATS MAINTAINED >93% ON RA UP TO 2 L/MIN NC. AFIB CONTINUES ON MONITOR, RATE 100-120 W/OCCASIONAL PEAKS UP TO 140 BUT DOESN'T SUSTAIN, PT DENIES CP. PT SBA TO BSC, TOLERATING WELL. HEPARIN INFUSION CONTINUES PER ORDERS. PT MEDICATED x2 FOR C/O LOW BACK AND LEG PAIN. PT UP TO BEDSIDE RECLINER TO A PORTION OF THE DAY, ALSO RECEIVED BEDBATH. AT THIS TIME, PT IS RESTING QUIETLY IN BED. WILL CONTINUE TO MONITOR AND TREAT ACCORDINGLY UNTIL CHANGE OF SHIFT.
[2023-02-18 20:43] VITALS: BP 104/74
[2023-02-18 23:17] VITALS: BP 123/80
[2023-02-19 03:13] VITALS: BP 111/76
[2023-02-19 03:44] LABS: Hemoglobin 10.5 g/dL (11.5-16.0); Mean Platelet Volume 10.9 fL (9.1-12.4); Platelet Count 273 K/mm3 (150-400)
--- NOTE | 2023-02-19 04:18 | NUR ---
SHIFT SUMMARY PT A&Ox4, CALLS AND COMMUNICATES NEEDS APPROPRIATELY. BP STABLE, AFIB 80-110's, DENIES CP/PRESSURE. SpO2> 92% RA-1L VIA NC, DENIES SOB. PT SBA TO BSC FOR VOIDS, NO BM THIS SHIFT. PT WITH URINARY FREQUENCY AT START OF SHIFT SECONDARY TO LASIX. HEPARIN gtt @ 17. NO OTHER EVENTS, WILL REPORT TO ONCOMING RN.
[2023-02-19 04:35] LABS: Albumin, Blood 2.8 g/dL (3.4-5.0); Anion Gap 2 mmol/L (6-16); Blood Urea Nitrogen 28 mg/dL (8-24); Bun/Creatinine Ratio 36.6 (12.0-20.0); CO2, Blood 30 mmol/L (21-32); Calcium, Blood 8.8 mg/dL (8.5-10.1); Chloride, Blood 107 mmol/L (98-108); Creatinine, Blood 0.77 mg/dL (0.40-1.00); Glomerular Filtration Rate 80 (60-); Glucose, Blood 99 mg/dL (70-99); Phosphorus, Blood 4.6 mg/dL (2.5-4.9); Potassium, Blood 4.1 mmol/L (3.5-5.5); Sodium, Blood 139 mmol/L (136-145)
[2023-02-19 07:35] VITALS: BP 133/73
[2023-02-19 11:33] VITALS: BP 88/58
[2023-02-19 15:46] VITALS: BP 107/72
--- NOTE | 2023-02-19 16:29 | NUR ---
SHIFT SUMMARY: PT CONTINUES A&Ox4, COOPERATIVE W/CARE, USING CALL LIGHT APPROPRIATELY. O2 FLOW HAS BEEN TITRATED FROM 1 L/MIN TO RA, O2 SATS >95%, PT DENIES SOB. AFIB CONTINUES ON MONITOR, HR 70s-90s, HEPARIN INFUSING PER ORDERS. PT PARTICIPATES W/PT, TOLERATES WELL, CONTINUES TO BE SBA IN ROOM. PT TRANSFERING SELF TO/FROM BSC, RECLINER AND BED W/OUT DIFFICULTY. AT THIS TIME, PT IS RESTING IN ROOM W/FAMILY AT BEDSIDE. WILL CONTINUE TO MONITOR AND TREAT ACCORDINGLY UNTIL CHANGE OF SHIFT.
[2023-02-19 18:19] LABS: Digoxin (Lanoxin) 1.03 ug/mL (0.80-2.00)
[2023-02-19 20:18] VITALS: BP 90/65
[2023-02-19 23:11] VITALS: BP 119/52
[2023-02-20 03:21] VITALS: BP 124/82
[2023-02-20 04:01] LABS: Albumin, Blood 2.7 g/dL (3.4-5.0); Anion Gap 2 mmol/L (6-16); Blood Urea Nitrogen 28 mg/dL (8-24); Bun/Creatinine Ratio 37.3 (12.0-20.0); CO2, Blood 29 mmol/L (21-32); Calcium, Blood 9.2 mg/dL (8.5-10.1); Chloride, Blood 108 mmol/L (98-108); Creatinine, Blood 0.75 mg/dL (0.40-1.00); Glomerular Filtration Rate 82 (60-); Glucose, Blood 92 mg/dL (70-99); Phosphorus, Blood 3.6 mg/dL (2.5-4.9); Potassium, Blood 4.6 mmol/L (3.5-5.5); Sodium, Blood 139 mmol/L (136-145)
--- NOTE | 2023-02-20 05:00 | NUR ---
SHIFT SUMMARY PT A&Ox4, CALLS AND COMMUNICATES NEEDS APPROPRIATELY. BP STABLE, AFIB 70-90's, DENIES CP/PRESSURE. SpO2> 92% RA, DENIES SOB. PT SBA/IND TO BSC FOR VOIDS, NO BM THIS SHIFT. HEPARIN gtt STOPPED PER ORDER. NO OTHER EVENTS, WILL REPORT TO ONCOMING RN.
--- NOTE | 2023-02-20 07:38 | NUR ---
Patient is alert and oriented to self, place, month, and situation. Patient presents with PERRLA. Face is symetrical. Vision and hearing is intact. Patient responds to verbal cues appropriatly. Radial pulses are thready and weak bilatterally. Upper extremities present with no difficulty during ROM. Horticultural Farmworker strength is equal bilatterally. Capillary refill is less than 3 seconds on upper and lower extremities bilatterally. 20G IV in the right wrist, saline locked, dressing is intact. Heart sounds are soft, present, and irregular. Patient presents with an inspiratory wheeze and diminished sounds in the bases. Bowel sounds are active x4. Abdomen is tender at the umbillicus and nondistended. Patient is incontinent. Attends are currently placed. Patient requires full 1 person assistance with ambulation. Pedal pulses are thready and weak bilatterally. Patient has stiffness bilatterally in the lower extremities during adduction. No edema noted on the lower extremities at this time.
[2023-02-20 08:44] VITALS: BP 112/51
--- NOTE | 2023-02-20 09:15 | NUR ---
Received report from Noc RN. Patient is sitting up in bed and is able to communicate her needs. She is a full asist by 1 and uses a cane at home. She has some concerns about being at home and getting around to bathroom . She is on RA and sats >90%. She has two 20ga IV's: RW and RLFA, both SL'd. 1st year student did assessment with supervision and have reviewed note. Patient has attends in place and is incontinent to stool and urine, she states last BM 02/19. Patient EDWINAERICH
[2023-02-20 11:18] VITALS: BP 108/64
[2023-02-20] MEDS ORDERED: DIGOX125 MC1 PO (11:30)
[2023-02-20] MEDS ORDERED: FURO40 PO (11:31)
[2023-02-20] MEDS ORDERED: POTA10T PO (11:32)
[2023-02-20] MEDS ORDERED: CEFD300 PO (12:23)
--- NOTE | 2023-02-20 13:23 | NUR ---
Patient possibly be discharged today. Talked with Dr Pradhan and Dr To about meds and pressure, as well as patient still having concerns about getting around house PT today and yesterday both state she did well with cane and ambulation and did not desat. Spoke with resident care aid about conccerns and she spoke with daughter Marisela about concerns and they were going to come in and evaluate. Dr Pradhan came back by and we are starting ABX re/t cultures and increased temp 100.4. Dr Pradhan went and spoke with family as well. gave [address] To and he stated not to worry about as it probably not the cause of trending drops over the last few days. She does have some memory issues that they may think r/t possible infection.
--- NOTE | 2023-02-20 17:29 | NUR ---
Dr Weems came down and talked to patient and family in room and she states ready to go home. Systolic still low 100's . She has ambulated in room and to bathroom and back without difficulty. She is on RA and sats >90%. She is being discharged and reviewed discharge instructions with patient and son and they returned understanding. Awaiting family to come belt picker and take home. Tele removed. She will be taken out in wheelchair to [facility].
== END 2023-02-20 18:35 | disposition home health service (06) | DRG 291 ==
LOC: ER 15:18 → PCU 15:19
PROVIDERS: Emergency Medicine; Family Medicine; Internal Medicine; Internal Medicine Cardiovascular Disease; ADMIT Internal Medicine
DX: I11.0 Hypertensive heart disease with heart failure (principal); I50.33 Acute on chronic diastolic (congestive) heart failure; J96.01 Acute respiratory failure with hypoxia; E87.0 Hyperosmolality and hypernatremia; N39.0 Urinary tract infection, site not specified; I47.20 Ventricular tachycardia, unspecified; I07.1 Rheumatic tricuspid insufficiency; I49.5 Sick sinus syndrome; J44.9 Chronic obstructive pulmonary disease, unspecified; I48.0 Paroxysmal atrial fibrillation; E78.5 Hyperlipidemia, unspecified; B95.2 Enterococcus as the cause of diseases classified elsewhere; B96.20 Unspecified Escherichia coli [E. coli] as the cause of diseases classified elsewhere; F32.A Depression, unspecified; F41.9 Anxiety disorder, unspecified; E83.39 Other disorders of phosphorus metabolism; E88.09 Other disorders of plasma-protein metabolism, not elsewhere classified; D64.9 Anemia, unspecified; G47.30 Sleep apnea, unspecified; I50.810 Right heart failure, unspecified; Z88.2 Allergy status to sulfonamides; Z79.899 Other long term (current) drug therapy; Z87.891 Personal history of nicotine dependence; Z79.01 Long term (current) use of anticoagulants; Z79.02 Long term (current) use of antithrombotics/antiplatelets; Z90.710 Acquired absence of both cervix and uterus; Z79.51 Long term (current) use of inhaled steroids; Z79.82 Long term (current) use of aspirin; Z79.2 Long term (current) use of antibiotics
CPT/HCPCS: 36415; 71045; 71260; 80048; 80069; 80162; 82947; 83735; 83880; 84100; 84484; 85014; 85018; 85025; 85049; 85520; 85610; 85730; 87077; 87086; 87186; 93005; 93010; 93306; 94640; 94664; 94760; 94761; 94762; 96374; 96375; 96376; 97110; 97116; 97162; 97165; 97530; 97535; 99285-25; A9270; G0378; J0696; J1160; J1644; J1940; J2930; Q9967

== ENCOUNTER → 2023-02-12 | Outpatient (CLI) | payer MEDICARE, OTHER ==
[~2023-02-12] MED LIST changes: +CEFD300 PO; +ONDA4ODT MM
[2023-02-12 14:36] LABS: BASOPHILS ABSOLUTE AUTO 0.07 K/mm3 (0.00-0.23); BASOPHILS PERCENT AUTO 1 % (0-2); EOSINOPHILS ABSOLUTE AUTO 0.07 K/mm3 (0.00-0.68); EOSINOPHILS PERCENT AUTO 1 % (0-6); Hemoglobin 9.3 g/dL (11.5-16.0); IMMATURE GRAN ABSOLUTE AUTO 0.05 K/mm3 (0.00-0.10); IMMATURE GRAN PERCENT AUTO 1 % (0-1); LYMPHOCYTES PERCENT AUTO 13 % (21-46); MONOCYTES ABSOLUTE AUTO 0.88 K/mm3 (0.16-1.47); MONOCYTES PERCENT AUTO 10 % (4-13); Mean Corpuscular HGB 22.7 pg (26.0-34.0); Mean Corpuscular HGB Conc 29.1 g/dL (31.5-36.5); Mean Corpuscular Volume 78 fL (80-100); Mean Platelet Volume 10.1 fL (9.1-12.4); NEUTROPHILS ABSOLUTE AUTO 6.76 K/mm3 (1.96-9.15); NEUTROPHILS PERCENT AUTO 75 % (41-73); NRBC ABSOLUTE 0.02 K/mm3 (0.00-0.02); NRBC Auto 0.2 /100 WBC (0.0-0.2); Platelet Count 320 K/mm3 (150-400); RDW Coefficient Variation 19.1 % (11.7-14.2); RDW Standard Deviation 53.9 fL (35.1-46.3); Red Blood Cell Count 4.09 M/mm3 (3.80-5.20); White Blood Cell Count 9.03 K/mm3 (4.00-11.30)
[2023-02-12 14:53] LABS: Albumin, Blood 3.1 g/dL (3.4-5.0); Albumin/Globulin Ratio 0.9 (0.8-1.8); Bilirubin, Total 0.4 mg/dL (0.1-1.0); Calcium, Blood 8.8 mg/dL (8.5-10.1); Creatinine, Blood 0.74 mg/dL (0.40-1.00); Globulin, Blood 3.4 g/dL (2.2-4.0); Thyroid Stimulating Hormone 2.185 uIU/mL (0.360-4.800); Total Protein, Blood 6.5 g/dL (6.4-8.2)
== END | disposition home or self-care (01) ==
LOC: LAB 14:29 → LAB SHORT 14:29
PROVIDERS: Physician Assistant
DX: R53.83 Other fatigue (principal); R06.00 Dyspnea, unspecified
CPT/HCPCS: 80053; 82150; 83880; 84443; 85025

== ENCOUNTER → 2023-06-01 | Outpatient (CLI) | payer MEDICARE, OTHER ==
[~2023-06-01] MED LIST changes: +DIGOX125 MC1 PO; +FURO40 PO; +POTA10T PO
== END | disposition home or self-care (01) ==
LOC: LAB SHORT 10:00 → LAB 10:00
DX: R30.0 Dysuria (principal)
CPT/HCPCS: 87077; 87086; 87186

== ENCOUNTER → 2023-08-16 | Outpatient (CLI) | payer MEDICARE, OTHER | END | disposition home or self-care (01) | LOC: LAB SHORT 11:20 → LAB 11:20 | DX: N39.0 Urinary tract infection, site not specified (principal) | CPT/HCPCS: 87077; 87086; 87186 ==

== ENCOUNTER → 2023-10-30 | Outpatient (CLI) | payer MEDICARE, OTHER ==
[2023-10-30 13:53] LABS: BASOPHILS ABSOLUTE AUTO 0.08 K/mm3 (0.00-0.23); BASOPHILS PERCENT AUTO 1 % (0-2); EOSINOPHILS ABSOLUTE AUTO 0.15 K/mm3 (0.00-0.68); EOSINOPHILS PERCENT AUTO 2 % (0-6); Hematocrit 43.2 % (33.0-51.0); Hemoglobin 12.7 g/dL (11.5-16.0); IMMATURE GRAN ABSOLUTE AUTO 0.05 K/mm3 (0.00-0.10); IMMATURE GRAN PERCENT AUTO 1 % (0-1); LYMPHOCYTES ABSOLUTE AUTO 1.94 K/mm3 (0.84-5.20); LYMPHOCYTES PERCENT AUTO 21 % (21-46); MONOCYTES ABSOLUTE AUTO 0.83 K/mm3 (0.16-1.47); MONOCYTES PERCENT AUTO 9 % (4-13); Mean Corpuscular HGB 24.8 pg (26.0-34.0); Mean Corpuscular HGB Conc 29.4 g/dL (31.5-36.5); Mean Corpuscular Volume 84 fL (80-100); Mean Platelet Volume 11.4 fL (9.1-12.4); NEUTROPHILS ABSOLUTE AUTO 6.36 K/mm3 (1.96-9.15); NEUTROPHILS PERCENT AUTO 68 % (41-73); Platelet Count 237 K/mm3 (150-400); RDW Coefficient Variation 21.5 % (11.7-14.2); Red Blood Cell Count 5.13 M/mm3 (3.80-5.20); White Blood Cell Count 9.41 K/mm3 (4.00-11.30)
[2023-10-30 14:11] LABS: CHOL/HDL RATIO 3.8; Cholesterol 162 mg/dL (50-200); HDL Cholesterol 43 mg/dL (>39); LDL/HDL RATIO 1.8; Low Density Lipoprotein Chol 76 mg/dL (0-110); Triglycerides 217 mg/dL (30-160); Very Low Density Lipoprot Chol 43 mg/dL (6-32)
[2023-10-30 14:19] LABS: Digoxin (Lanoxin) 0.92 ug/mL (0.80-2.00)
[2023-11-01 08:10] LABS: A/G RATIO 1.4 (1.2-2.2); BILIRUBIN, TOTAL 0.4 mg/dL (0.0-1.2); CALCIUM, SERUM 9.3 mg/dL (8.7-10.3); CREATININE, SERUM 0.79 mg/dL (0.57-1.00); GLOBULIN, TOTAL 2.7 g/dL (1.5-4.5); POTASSIUM, SERUM 4.3 mmol/L (3.5-5.2); PROTEIN, TOTAL, SERUM 6.6 g/dL (6.0-8.5)
== END | disposition home or self-care (01) ==
LOC: LAB 11:58 → LAB SHORT 11:58
PROVIDERS: Family Medicine
DX: I50.32 Chronic diastolic (congestive) heart failure (principal)
CPT/HCPCS: 80053; 80061; 80162; 83880; 85025

== ENCOUNTER 2024-07-10 12:15 | Inpatient (IN) | payer MEDICARE, OTHER ==
[~2024-07-10] VITALS: Ht 162.6 cm; Wt 66.4 kg
[2024-07-10 13:17] LABS: BASOPHILS ABSOLUTE AUTO 0.07 K/mm3 (0.00-0.23); BASOPHILS PERCENT AUTO 1 % (0-2); EOSINOPHILS ABSOLUTE AUTO 0.08 K/mm3 (0.00-0.68); EOSINOPHILS PERCENT AUTO 1 % (0-6); Hematocrit 46.1 % (33.0-51.0); Hemoglobin 14.6 g/dL (11.5-16.0); IMMATURE GRAN ABSOLUTE AUTO 0.06 K/mm3 (0.00-0.10); IMMATURE GRAN PERCENT AUTO 1 % (0-1); LYMPHOCYTES ABSOLUTE AUTO 1.44 K/mm3 (0.84-5.20); LYMPHOCYTES PERCENT AUTO 11 % (21-46); MONOCYTES ABSOLUTE AUTO 1.18 K/mm3 (0.16-1.47); MONOCYTES PERCENT AUTO 9 % (4-13); Mean Corpuscular HGB 29.4 pg (26.0-34.0); Mean Corpuscular HGB Conc 31.7 g/dL (31.5-36.5); Mean Corpuscular Volume 93 fL (80-100); Mean Platelet Volume 11.4 fL (9.1-12.4); NEUTROPHILS ABSOLUTE AUTO 10.46 K/mm3 (1.96-9.15); NEUTROPHILS PERCENT AUTO 79 % (41-73); Platelet Count 227 K/mm3 (150-400); RDW Coefficient Variation 14.2 % (11.7-14.2); RDW Standard Deviation 48.5 fL (35.1-46.3); Red Blood Cell Count 4.96 M/mm3 (3.80-5.20); White Blood Cell Count 13.29 K/mm3 (4.00-11.30)
[2024-07-10 13:46] LABS: Albumin, Blood 3.1 g/dL (3.4-5.0); Albumin/Globulin Ratio 0.8 (0.8-1.8); Bilirubin, Total 0.9 mg/dL (0.1-1.0); Bun/Creatinine Ratio 26.8 (12.0-20.0); Calcium, Blood 9.3 mg/dL (8.5-10.1); Creatinine, Blood 0.71 mg/dL (0.40-1.00); Globulin, Blood 3.8 g/dL (2.2-4.0); Potassium, Blood 4.1 mmol/L (3.5-5.5); Total Protein, Blood 6.9 g/dL (6.4-8.2)
[2024-07-10] MEDS ORDERED: Metoprolol Tartrate 1 MG/ML 5 ML VIAL IV ONE (15:10)
[2024-07-10] MEDS ORDERED: Digoxin 0.25 MG Tab PO ONE ×2 (15:15→17:55)
[2024-07-10] MEDS ORDERED: Bisacodyl 10 MG Supp PR PRN (15:40)
[2024-07-10] MEDS ORDERED: Zolpidem Tartrate 5 MG Tab PO PRN (15:40)
[2024-07-10] MEDS ORDERED: Acetaminophen 325 MG TABLET PO PRN (15:40)
[2024-07-10 15:41] LABS: Source, Urine Clean Catch
[2024-07-10 15:45] LABS: Appearance, Urine Clear (Clear); Bilirubin, Urine Neg (Neg); Blood, Urine Neg (Neg); Color, Urine Amber (P-Yellow); Glucose Qualitative, Urine Neg (Neg); Ketones, Urine Neg (Neg); Leukocyte Esterase, Urine 2+ (Neg); Nitrite, Urine Neg (Neg); Protein, Urine 2+ (Neg); Specific Gravity, Urine 1.025 (1.003-1.022); Urobilinogen, Urine NORM (Normal)
[2024-07-10] MEDS ORDERED: OxyCODONE HCL 5 MG TAB PO PRN (15:45)
[2024-07-10] MEDS ORDERED: Magnesium Hydroxide Conc 10 ML UDC PO PRN (15:45)
[2024-07-10] MEDS ORDERED: Ondansetron 4 MG TAB PO PRN (15:45)
[2024-07-10] MEDS ORDERED: Naloxone HCl 0.4MG / ML 1ML Vial IV PRN (15:45)
[2024-07-10 15:52] LABS: Bacteria Many /hpf; Red Blood Cells, Urine 0-2 /hpf (0-2); Squamous Epithelial Cells Few /hpf (Few)
[2024-07-10] MEDS ORDERED: Labetalol HCL 5 MG/ML 4ML Injection (Single Dose) IV PRN (16:20)
[2024-07-10] MEDS ORDERED: CefTRIAXone Sodium 1,000 MG in NS 100 ML IV SCH (17:00)
[2024-07-10] MEDS ORDERED: NiCARdipine HCL 50 MG in NS 250 ML IV SCH (18:00)
[2024-07-10] MEDS ORDERED: Midodrine 5 MG Tab PO SCH (18:00)
[2024-07-10] MEDS ORDERED: Metoprolol Tartrate 1 MG/ML 5 ML VIAL IV SCH (18:05)
[2024-07-10 20:37] VITALS: BP 97/65
[2024-07-10] MEDS ORDERED: Lactobacil 2-S.Thermo-Bifido 1 1 Cap PO SCH (21:00)
[2024-07-10] MEDS ORDERED: Metoprolol Tartrate 25 MG Tab PO SCH (21:00)
[2024-07-10] MEDS ORDERED: Famotidine 20 MG Tab PO SCH (21:00)
[2024-07-10 21:56] LABS: Albumin, Blood 2.9 g/dL (3.4-5.0); Albumin/Globulin Ratio 0.8 (0.8-1.8); Bilirubin, Total 0.4 mg/dL (0.1-1.0); Calcium, Blood 9.4 mg/dL (8.5-10.1); Creatinine, Blood 0.89 mg/dL (0.40-1.00); Globulin, Blood 3.8 g/dL (2.2-4.0); Magnesium, Blood 2.7 mg/dL (1.6-2.4); Potassium, Blood 4.1 mmol/L (3.5-5.5); Total Protein, Blood 6.7 g/dL (6.4-8.2)
[2024-07-11] VITALS (9 sets, daily range): BP systolic 92–127; BP diastolic 53–95
--- NOTE | 2024-07-11 01:42 | NUR ---
LATE NOTE. PT ARRIVED ON UNIT @ ~2029. 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 ADMISSION PROCESS COMPLETED PER PROTOCOL. PT IS TOTALLY ORIENTED BUT IS SOMEWHAT UNRELIABLE HISTORIAN, FAMILY WAS AT BEDSIDE DURING ADMISSION PROCESS TO HELP WITH HEALTH HX QUESTIONS. PT DENIES PAIN. ADMITTED FOR AFIB W/RVR. HEART RATE HAS BEEN VERY VARIABLE ANYWHERE BETWEEN 100s-140s. BLOOD PRESSURE WAS SOFT IN ED BUT HAS BEEN STABLE WITH MAP >70 SIN[address]RIVAL. SPOKE WITH DR. PIERRE REGARDING VARIABLE HEART RATE. OKAY TO CONTINUE TO MONITOR FOR NOW. STAGE 1 NON BLANCHABLE PRESSURE ULCER ON RIGHT BUTTOCKS NOTED, PHOTO IN CHART AND DR. PIERRE NOTIFIED. PT HAS BEEN REST COMFORTABLY SINCE ARRIVAL. STEADY 1PA TRANSFER TO BEDSIDE COMMODE. CALLS APPROPRIATELY FOR ASSISTANCE. BED LOCKED IN LOWEST POSITION. CALL LIGHT LEFT WITHIN REACH. CONTINUING TO MONITOR.
[2024-07-11 04:00] LABS: Hematocrit 43.4 % (33.0-51.0); Hemoglobin 13.6 g/dL (11.5-16.0); Mean Corpuscular HGB 29.8 pg (26.0-34.0); Mean Corpuscular HGB Conc 31.3 g/dL (31.5-36.5); Mean Corpuscular Volume 95 fL (80-100); Mean Platelet Volume 11.8 fL (9.1-12.4); Platelet Count 193 K/mm3 (150-400); RDW Coefficient Variation 14.2 % (11.7-14.2); RDW Standard Deviation 49.3 fL (35.1-46.3); Red Blood Cell Count 4.57 M/mm3 (3.80-5.20); White Blood Cell Count 8.85 K/mm3 (4.00-11.30)
--- NOTE | 2024-07-11 04:02 | NUR ---
SPOKE WITH DR. TERRAZAS. PT HEART RATE HAS HAD LOTS OF VARIABILITY THROUGHOUT SHIFT BUT HAS MOSTLY BEEN ANYWHERE IN THE 100s-140s RANGE. BP HAS BEEN STABLE BUT SOFT. PT RESTING COMFORTABLY IN BED. INQUIRED ABOUT HR MANAGEMENT GIVEN THAT PT FREQUENT EXPERIENCES HR ELEVATIONS TO 140s-150s. PER DR. TERRAZAS IF HR SUSTAINS >120 AND SBP IS >100 OKAY TO GIVE SCHEDULED MORNING PO METOPROLOL EARLY. OTHERWISE CONTINUE TO MONITOR.
[2024-07-11 04:26] LABS: Bun/Creatinine Ratio 25.9 (12.0-20.0); Calcium, Blood 8.6 mg/dL (8.5-10.1); Creatinine, Blood 0.81 mg/dL (0.40-1.00); Magnesium, Blood 2.3 mg/dL (1.6-2.4); Potassium, Blood 4.1 mmol/L (3.5-5.5)
--- NOTE | 2024-07-11 05:47 | NUR ---
SHIFT SUMMARY. SHIFT HAS BEEN UNREMARKABLE SINCE ADMISSION NOTE. PT AOX4, PLEASANT, COOPERATIVE, CALLS APPROPRIATELY, ABLE TO MAKE NEEDS KNOWN. HAS BEEN CONTINENT TO BSC OUTSIDE OF ONE EPISODE OF INCONTINENCE. PAIN HAS BEEN ADEQUATELY MANAGED VIA EMAR. CONTINUES TO RUN AFIB WITH VARIABLE HEART RATE. BLOOD PRESSURE HAS BEEN STABLE BUT SOFT. PT HAS BEEN ON ROOM AIR FOR SEVERAL HOURS AND IS MAINTAINING SATURATION >92%. RESTING COMFORTABLY. CALLS APPROPRIATELY. BED LOCKED IN LOWEST POSITION. CALL LIGHT LEFT WITHINN REACH. CONTINUING TO MONITOR.
--- NOTE | 2024-07-11 08:07 | NUR ---
AM NOTE this rn assumed care at 0700. vital signs stable. tele afib in raji 130-140s. oral medication given and awaiting for it to kick in before trying iv medication due to patient blood pressure being sensitive to blood pressure medication. spo2 >90% on room air. patient is alert and oriented x4. 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 patient able to make needs known and uses call light appropriately. denies pain, chest pain/pressure or shortness of breath. patient does endorse shortness of breath with exertion. heart rate increases with minimal exertion. see shift assessment for further detials. plan is up to date at this time.
[2024-07-11] MEDS ORDERED: Furosemide 20 MG Tab PO SCH (09:00)
[2024-07-11] MEDS ORDERED: Digoxin 0.125 MG Tab PO SCH (09:00)
[2024-07-11] MEDS ORDERED: Rivaroxaban 10 MG Tab PO SCH (09:00)
--- NOTE | 2024-07-11 09:50 | NUR ---
update tele teach called to notify of 2.5 second pause. this rn called md mayorga to update. no new orders. while in patient room patient requesting that should would like assistance at home. this rn updated monico with care management, and that her specific request was for meals. this rn spoke with daughter stephie, and updated daughter on current plan of care and status of her mother, the patient
[2024-07-11] MEDS ORDERED: ClonazePAM 0.5 MG Tab PO PRN (10:45)
[2024-07-11] MEDS ORDERED: Midodrine 5 MG Tab PO SCH (13:00)
--- NOTE | 2024-07-11 18:20 | NUR ---
shift summary patient neuro remains unchaged.vital signs stable. no acute changes. plan remains up to date.
[2024-07-11] MEDS ORDERED: Atorvastatin 10 MG Tab PO SCH (21:00)
[2024-07-12] VITALS (14 sets, daily range): BP systolic 92–151; BP diastolic 57–111
[2024-07-12 03:41] LABS: Hematocrit 46.3 % (33.0-51.0); Hemoglobin 14.4 g/dL (11.5-16.0)
[2024-07-12 04:03] LABS: Bun/Creatinine Ratio 23.4 (12.0-20.0); Calcium, Blood 9.1 mg/dL (8.5-10.1); Creatinine, Blood 1.07 mg/dL (0.40-1.00); Magnesium, Blood 2.4 mg/dL (1.6-2.4)
--- NOTE | 2024-07-12 05:25 | NUR ---
SHIFT SUMMARY- Patient A&Ox3, forgetful of time occasionally. Needs assistance being directed when getting OOB, Moderate assist x1, weak on her feet. Stage 1 pressure ulcer still present, barrier cream applied and q2h turns in place with pillow support for pressure redistribution. Afib on telemetry HR 90-130s. Some slight hypotension after metoprolol administration, MAP >65 this AM. Weaned off O2, sats >92% on RA. Patient c/o back pain relieved with PRN roxicodone x 1. Being treated for UTI with rocephin. Some LE edema present, patient with CHF history on lasix. Per MD plan is to continue to wean midodrine and increase metoprolol slowly back to patient's prescribed dose as her BP tolerates. Patient denies dizziness upon standing this shift. PT recommending SNF due to debility.
[2024-07-12] MEDS ORDERED: Sodium Zirconium Cyclosilicate 10 GM Packet PO ONE (08:35)
[2024-07-12] MEDS ORDERED: Furosemide 10 MG / ML 2ML Vial IV ONE (08:35)
[2024-07-12] MEDS ORDERED: Digoxin 0.25 MG Tab PO SCH (10:00)
--- NOTE | 2024-07-12 10:03 | NUR ---
AM NOTE: PATIENT ALERT AND ORIENTED. FORGETFUL AT TIMES. BED ALARM IN PLACE. OVERALL WEAKNESS WITH HISTORY OF CVA AND LEFT SIDED WEAKNESS. PATIENT ABLE TO MOVE ALL EXTREMITIES AND FOLLOW ALL COMMANDS. DENIES PAIN THIS AM BUT DOES STATE HER NECK IS STIFF FROM "SLEEPING FUNNY". Q2 TURNS AND NEEDED. 1 PERSON TO [facility]. FWW AND GAIT BELT. ON ROOM AIR SATING 95-96%. LUNGS SOUNDS CLEAR AND DIM IN BASES. OCCASIONAL COARSE SOUNDING COUGH, DENIES ANY SPUTUM PRODUCTION. EVEN AND UNLABORED RESPIRATIONS. SLEEPING WITH MOUTH OPEN. TELE SHOWING AFIB WITH HR 100-140S. SBP 90-110'S. DENIES CHEST PAIN/PRESSURE/PALPITATIONS. PPP. MINIMAL EDEMA TO BLE. REDNESS/PURPLE DISCOLORATION TO BILATERAL FEET, COOL TO TOUCH. DENIES ABDOMINAL PAIN/NAUSEA. ATTENDS IN PLACE. HISTORY OF SOME DYSPHAGIA WITH BARRIUM STUDY COMPLETED IN 2021. PILLS IN APPLESAUCE. STAGE 1 PRESSURE SORE ON BOTTOM: Q2 TURNS, MEPILEX CHANGE, CLEANED AND CREAM APPLIED. CALL LIGHT IN REACH. PATIENT RESTING AT THIS TIME IN BED WITH EYES CLOSED. DR. NASIR ROBERTS FOR PROVIDER ROUNDING AND DISCUSSED PLAN OF CARE WITH THIS RN.
--- NOTE | 2024-07-12 11:48 | NUR ---
PHYSICAL THERAPY IN ROOM AT THIS TIME.
--- NOTE | 2024-07-12 14:14 | NUR ---
2 DAUGHTERS AND IN TO VISIT PATIENT. UPDATED BY THIS RN.
--- NOTE | 2024-07-12 18:26 | NUR ---
SHIFT SUMMARY: NO ACUTE CHANGES, SEE PREVIOUS NOTE. PATIENT HR TRENDING 90-150'S. DENIES CHEST PAIN/PRESSURE THROUGHOUT SHIFT. PHYSICAL THERAPY IN TO WORK WITH PATIENT. IV ABX INFUSING AT THIS TIME. PATIENT SLEEPY AND SLEPT MOST OF SHIFT AND STATES "I NEEDED IT". FORGETFUL AT TIMES. BED ALARM IN PLACE. SBP TRENDING 90-120'S. CALL LIGHT IN REACH. DENIES NEEDS AT THIS TIME.
[2024-07-13] VITALS (9 sets, daily range): BP systolic 89–123; BP diastolic 67–101
[2024-07-13 04:08] LABS: Hematocrit 46.7 % (33.0-51.0); Hemoglobin 14.7 g/dL (11.5-16.0)
[2024-07-13 04:32] LABS: Bun/Creatinine Ratio 26.1 (12.0-20.0); Potassium, Blood 4.1 mmol/L (3.5-5.5)
--- NOTE | 2024-07-13 06:45 | NUR ---
PT STABLE THROUGHOUT SHIFT THOUGH HEART RATE/RHYTHM REMAINED ELEVATED IN THE 110-130s IN AFIB. PT DID OCCASSIONALLY TOUCH 160s but DID NOT STAY THERE LONG. PT HAD NO REPORTS OF CP/SOB/PALPITATIONS WITH THIS HEART RATE/RHYTHM. OTHER VITAL SIGNS REMAINED WNL. PT REMAINS ON ROOM. PT DID HAVE SOME INCONTIENT EPISODES AND NEW BRIEFS AND PARTIAL LINEN CHANGE DONE. PT DID TRANSFER TWICE TO [facility] [place] WITH 1 ASSIST AND WALKER. PT DOES REPORT HESITANCY WITH STARTING TO URINATE BUT IS EVENTUALLY ABLE TO. NEW MEPILEX DRESSIGN APPLIED TO RIGHT BUTTOCK AND CREAM APPLIED OVER COCCYX WOUND.
--- NOTE | 2024-07-13 09:11 | NUR ---
AM NOTE: PATIENT WIDE AWAKE THIS MORNING. DENIES PAIN. UP TO BSC, LARGE BOWEL MOVEMENT. LEFT SIDED WEAKNESS, HISTORY OF CVA. TELE CONTINUES TO SHOW AFIB WITH HR 120-130'S OCCASIONALLY UP TO 150'S. PO METOPROLOL AND PO DIG GIVEN THIS AM PER EMAR. SBP 110'S. PPP. BILATERAL FEET COOL TO TOUCH, PURPLE/RED DISCOLORATION SURROUNDING TOES AND PLANTAR SURFACE. PULSES PALPABLE. ON ROOM AIR, LUNGS SOUNDING CLEAR AND DIM. OCCASIONAL COUGH. NEW ATTENDS AND KATHARINA CARE THIS AM. MEPILEX REMAINS IN PLACE. Q2 TURNING AND NEEDED. CALL LIGHT IN REACH. BED ALARM IN PLACE.
[2024-07-13] MEDS ORDERED: Metoprolol Tartrate 25 MG Tab PO ONE (11:00)
--- NOTE | 2024-07-13 18:10 | NUR ---
SHIFT SUMMARY: HR IMPROVED THROUGHOUT THE LATE AFTERNOON RANGING FROM 80-110'S. SBP 90-120'S. DENIES CHEST PAIN/PRESSURE/PALPITATIONS. REMAINS IN AFIB. UP IN RECLINER FOR DINNER AT THIS TIME. PHYSICAL THERAPY IN THIS AFTERNOON. BED BATH GIVEN. ON ROOM AIR. TOLERATING DIET WELL. DAUGHTER AND EX IN TO VISIT, UPDATED BY THIS RN. Q2 TURNING. MEPILEX CHANGED THIS SHIFT DURING BED BATH. PATIENT UP TO COMMODE FREQUENTLY TO URINATE. EPISODES OF INCONTINENCE WELL. CALL LIGHT IN REACH. DENIES NEEDS.
[2024-07-13] MEDS ORDERED: Metoprolol Tartrate 25 MG Tab PO SCH (21:00)
[2024-07-14 04:14] VITALS: BP 109/93
[2024-07-14 04:22] LABS: Hematocrit 47.3 % (33.0-51.0); Hemoglobin 14.9 g/dL (11.5-16.0)
[2024-07-14 04:56] LABS: Anion Gap 11 mmol/L (3-11); Blood Urea Nitrogen 28 mg/dL (8-24); Bun/Creatinine Ratio 25.7 (12.0-20.0); CO2, Blood 26 mmol/L (21-32); Calcium, Blood 9.2 mg/dL (8.5-10.1); Chloride, Blood 107 mmol/L (98-108); Creatinine, Blood 1.09 mg/dL (0.40-1.00); Digoxin (Lanoxin) 1.04 ug/mL (0.80-2.00); Glomerular Filtration Rate 52 (60-); Glucose, Blood 114 mg/dL (70-99); Potassium, Blood 4.2 mmol/L (3.5-5.5); Sodium, Blood 140 mmol/L (136-145)
[2024-07-14 05:12] VITALS: BP 110/83
--- NOTE | 2024-07-14 05:45 | NUR ---
PT HEART RATE REMAINS ELEVATED AND SUSTAINED IN THE 140s-160s WHILE EATING SNACK. PT DID NOT RECEIVE NIGHT DOSE OF METOPROLOL D/T VITAL SIGN PARAMETERS. CALL PLACED TO DR. RUIZ ORDERS TO GIVE AM DOSE EARLY. VITAL SIGNS WITHIN PARAMETERS AND MORNING DOSE GIVEN EARLY.
--- NOTE | 2024-07-14 06:49 | NUR ---
PT HAD CONTINUES TO HAVE ELEVATED HR THROUGH THE SHIFT. PT NIGHT DOSE OF METOPROLOL UNABLE TO BE GIVEN D/T BP PARAMETERS. PT HR RATE ELEVATED INTO THE 140s-160s BUT WAS ASYMPTOMATIC. MORNING DOSE OF METOPROLOL GIVEN PER DR ORDER AND BP WAS WITHIN PARAMETERS. PT HAS BEEN OOB TO CHAIR AND BSC COMMODE THIS SHIFT WITH WALKER AND NURSE ASSIST. PT CONTINUES TO BE CONTINENT/INCONTINENT. PT IS ABLE TO USE CALL LIGHT APPROPRIATELY BUT IS FORGETFUL. BED ALARM IN PLACE. BED IN LOW LOCKED POSITION, CALL LIGHT AND BEDSIDE TABLE IN REACH FOR PT. PT REMAINS ON ROOM AIR.
[2024-07-14 07:43] VITALS: BP 121/97
[2024-07-14] MEDS ORDERED: Digoxin 0.25 MG Tab PO SCH (09:00)
[2024-07-14 09:19] VITALS: BP 103/76
--- NOTE | 2024-07-14 09:21 | NUR ---
DR. NAIK BY THIS AM. ORDERS TO CHECK BLOOD SUGAR POST BREAKFAST AND IF BLOOD SUGAR IS ABOVE [address] D5 1/2 NORMAL SALINE ON STANDBY AND RECHECK BLOOD SUGAR AGAIN IN ONE HOUR. BLOOD SUGAR AT 0900 POST BREAKFAST IS 121. D5 1/2 NS PLACED ON STANDBY. WILL RECHECK BLOOD SUGAR AT [address] NAIK. SON AT BEDSIDE THIS AM. PATIENT UP IN RECLINER ON 2L NASAL CANNULA SATING ABOVE 95%. DENIES PAINS. HR 60-70'S. SBP 120'S. LUNGS SOUNDS DIMINISHED. LEFT ANKLE DRESSING C/D/I. PATIENT PLAYING GAMES ON PHONE AT THIS TIME IN RECLINER. CALL LIGHT IN REACH.
--- NOTE | 2024-07-14 09:43 | NUR ---
AM NOTE: PATIENT ALERT AND ORIENTED X3. NOT ABLE TO TELL ME CORRECT DATE OR TIME THIS AM. FORGETFUL. BED AND CHAIR ALARMS IN PLACE. OVERALL WEAK WITH LEFT SIDED WEAKNESS AND SHUFFLED GAIT DUE TO PREVIOUS CVA. PATIENT VERY PLEASENT AND COOPERATIVE WITH CARES. TOLERATING DIET. UP TO BSC WITH ASSISTANCE WELL EPISODES OF INCONTINENCE. TELE SHOWING AFIB WITH HR 90-110'S THIS AM. PO METOPROLOL GIVEN EARLY BY NOC SHIFT. SBP 100-120'S. PPP. IV SALINE LOCKED. DR. KAT BY THIS AM. ORDERS FOR SBP PARAMATERS TO BE CHANGED ON PO METOPROLOL. ORDERS TO HOLD PO METOPROLOL FOR SBP LESS THAN 90. ORDER UPDATED IN EMAR. ON ROOM AIR, OCCASIONAL CONGESTED SOUNDING COUGH WITH NO SPUTUM PRODUCTION. DENIES SOB. BOWEL TONES PRESENT. DENIES ABDOMINAL PAIN/NAUSEA. MEPILEX ON COCCYX CHANGED THIS AM. SITTING UP IN RECLINER WITH FEET ELEVATED. CALL LIGHT IN REACH. GLASS SETTER IN TO DISCUSS DISCHARGE PLANNING WITH PATIENT. PLAN TO DISCUSS WITH FAMILY UPON VISIT TODAY.
[2024-07-14 11:37] VITALS: BP 118/89
[2024-07-14] MEDS ORDERED: METO25 PO (12:22)
[2024-07-14 12:26] VITALS: BP 115/93
[2024-07-14 12:36] LABS: SARS-Cov-2 (COVID-19) PCR, MMC NEGATIVE (NEGATIVE)
--- NOTE | 2024-07-14 13:46 | NUR ---
DISCHARGE: PT HAS BEEN CLEARED FOR DISCHARGE TO ALF FACILITY. TRANSPORT ARRIVES FOR PT, PT TRANSFERS SELF TO W/C USING HER CANE. PT DEPARTS W/OUT INCIDENT.
--- NOTE | 2024-07-14 14:45 | NUR ---
DISCHARGE: PATIENT DISCHARGE TO [facility]. NO ACUTE CHANGES. DAUGHTER AT BEDSIDE THIS AFTERNOON AND CALLED UPON DISCHARGE TO [place]. PATIENT LEFT WITH ALL PERSONAL BELONGINGS AND [facility] PACKET. THIS RN CALLED AND REPORTED OFF TO [place] NURSE. IV REMOVED WNL.
[2024-07-14] MEDS ORDERED: Metoprolol Tartrate 25 MG Tab PO SCH (21:00)
== END 2024-07-14 13:40 | disposition home or self-care (01) | DRG 308 ==
LOC: ER 12:15 → PCU 15:38 → ERHOLD 15:38 → PCU 20:25
PROVIDERS: Emergency Medicine; Internal Medicine; Physician Assistant; ADMIT Hospitalist
DX: I48.91 Unspecified atrial fibrillation (principal); I50.31 Acute diastolic (congestive) heart failure; J96.01 Acute respiratory failure with hypoxia; I95.9 Hypotension, unspecified; I11.0 Hypertensive heart disease with heart failure; I07.1 Rheumatic tricuspid insufficiency; F32.A Depression, unspecified; F41.9 Anxiety disorder, unspecified; J44.9 Chronic obstructive pulmonary disease, unspecified; Z86.73 Personal history of transient ischemic attack (TIA), and cerebral infarction without residual deficits; Z90.710 Acquired absence of both cervix and uterus; Z88.2 Allergy status to sulfonamides; Z79.01 Long term (current) use of anticoagulants; Z79.899 Other long term (current) drug therapy; Z87.891 Personal history of nicotine dependence
CPT/HCPCS: 36415; 80048; 80053; 80162; 81001; 83735; 84145; 85014; 85018; 85025; 85027; 87086; 93005; 93010; 94760; 94762; 97110; 97116; 97162; 97530; 97530-CQ; 99285-25; A9270; J0696; J1940; J7050; U0002

== ENCOUNTER → 2024-07-28 | Outpatient (CLI) | payer MEDICARE, OTHER ==
[~2024-07-28] MED LIST changes: +METO25 PO
[2024-07-28 17:29] LABS: Anion Gap 10 mmol/L (3-11); Blood Urea Nitrogen 15 mg/dL (8-24); Bun/Creatinine Ratio 22.5 (12.0-20.0); CO2, Blood 22 mmol/L (21-32); Calcium, Blood 8.9 mg/dL (8.5-10.1); Chloride, Blood 111 mmol/L (98-108); Creatinine, Blood 0.67 mg/dL (0.40-1.00); Digoxin (Lanoxin) 2.03 ug/mL (0.80-2.00); Glomerular Filtration Rate 89 (60-); Glucose, Blood 193 mg/dL (70-99); Potassium, Blood 4.4 mmol/L (3.5-5.5); Sodium, Blood 139 mmol/L (136-145)
== END | disposition home or self-care (01) ==
LOC: LAB 14:46 → LAB SHORT 14:46
PROVIDERS: Family Medicine
DX: I50.32 Chronic diastolic (congestive) heart failure (principal)
CPT/HCPCS: 80048; 80162

== ENCOUNTER 2024-12-11 12:14 | Inpatient (IN) | payer MEDICARE, OTHER ==
[2024-12-11] VITALS (8 sets, daily range): BP systolic 76–114; BP diastolic 39–96
[~2024-12-11] VITALS: Ht 160 cm; Wt 63.5 kg
[~2024-12-11 12:14] MED LIST changes: -DIGOX125 MC1 PO; +DIGOX250 MCG PO
[2024-12-11 12:41] LABS: BASOPHILS ABSOLUTE AUTO 0.08 K/mm3 (0.00-0.23); BASOPHILS PERCENT AUTO 1 % (0-2); EOSINOPHILS PERCENT AUTO 1 % (0-6); Hematocrit 47.4 % (33.0-51.0); Hemoglobin 15.2 g/dL (11.5-16.0); IMMATURE GRAN ABSOLUTE AUTO 0.05 K/mm3 (0.00-0.10); IMMATURE GRAN PERCENT AUTO 1 % (0-1); LYMPHOCYTES PERCENT AUTO 17 % (21-46); MONOCYTES ABSOLUTE AUTO 0.89 K/mm3 (0.16-1.47); MONOCYTES PERCENT AUTO 9 % (4-13); Mean Corpuscular HGB 30.2 pg (26.0-34.0); Mean Corpuscular HGB Conc 32.1 g/dL (31.5-36.5); Mean Corpuscular Volume 94 fL (80-100); Mean Platelet Volume 11.3 fL (9.1-12.4); NEUTROPHILS ABSOLUTE AUTO 7.43 K/mm3 (1.96-9.15); NEUTROPHILS PERCENT AUTO 72 % (41-73); Platelet Count 185 K/mm3 (150-400); RDW Coefficient Variation 14.6 % (11.7-14.2); RDW Standard Deviation 50.6 fL (35.1-46.3); Red Blood Cell Count 5.04 M/mm3 (3.80-5.20); White Blood Cell Count 10.35 K/mm3 (4.00-11.30)
[2024-12-11 12:58] LABS: Albumin, Blood 2.8 g/dL (3.4-5.0); Albumin/Globulin Ratio 0.8 (0.8-1.8); Bilirubin, Total 0.7 mg/dL (0.1-1.0); Bun/Creatinine Ratio 35.1 (12.0-20.0); Calcium, Blood 8.9 mg/dL (8.5-10.1); Creatinine, Blood 0.63 mg/dL (0.40-1.00); Globulin, Blood 3.7 g/dL (2.2-4.0); Potassium, Blood 5.5 mmol/L (3.5-5.5); Total Protein, Blood 6.5 g/dL (6.4-8.2)
[2024-12-11 13:42] LABS: Digoxin (Lanoxin) 0.29 ug/mL (0.80-2.00)
[2024-12-11] MEDS ORDERED: Prochlorperazine Edisylate 10 mg Vial IV PRN (14:10)
[2024-12-11] MEDS ORDERED: Bisacodyl 10 MG Supp PR PRN (14:10)
[2024-12-11] MEDS ORDERED: Magnesium Hydroxide Conc 10 ML UDC PO PRN (14:10)
[2024-12-11] MEDS ORDERED: TraZODone HCl 50 MG Tab PO PRN (14:15)
[2024-12-11] MEDS ORDERED: FLU VACC TS2024-25(6MOS UP)/PF 45 MCG/0.5 ML SYRINGE IM SCH (14:15)
[2024-12-11] MEDS ORDERED: JARDIANCE10 MG PO (14:27)
[2024-12-11] MEDS ORDERED: Rivaroxaban 10 MG Tab PO SCH (17:00)
[2024-12-11] MEDS ORDERED: Midodrine 5 MG Tab PO SCH (18:00)
[2024-12-11 18:08] LABS: Source, Urine Straight Cath
--- NOTE | 2024-12-11 18:27 | NUR ---
PT ARRIVED IN THE UNIT VIA STRECTHER AT 1600. TRANSFERRED TO BED VIA SLIDER SHEET. PT WAS ALERT AND ORIENTED TO SELF AND PERSON, CONFUSED AND FORGETFUL, POOR HISTORIAN. PT IS ON AMIO GTT AT 33.3MLS/HR HRR AFIB ON THE 110-150'S, SBP SOFT 70-90'S MAP >60'S MIDODRINE STARTED, SATS ABOVE 95% ON RA AFEBRILE. PT DENIES CHEST PAIN/PRESSURE OR PALPITATIONS. DAUGHTER AT THE BEDSIDE WAS ABLE TO PROVIDE SOME INFORMATION FOR THE PT. PT ABLE TO TOLERATE MEDS AND FOOD, NO ISSUES. UA COLLECTED VIA STRAIGHT CATH SENT TO LAB. PT HAS SOME SCABS/PUSTULES ALL OVER BUTTOCKS AND PERIAREA MADE AWARE PHOTOS IN CHART SWAB SPECIMEN SENT TO LAB WELL. PT RESTING IN BED AT THIS TIME, BED ALARM ON FOR SAFETY IMPULSIVE AT TIMES. WILL REPORT TO ONCOMING SHIFT
[2024-12-11 18:35] LABS: Appearance, Urine Hazy (Clear); Bilirubin, Urine Neg (Neg); Blood, Urine Neg (Neg); Color, Urine Yellow (P-Yellow); Glucose Qualitative, Urine Neg (Neg); Ketones, Urine Neg (Neg); Leukocyte Esterase, Urine 1+ (Neg); Nitrite, Urine Neg (Neg); Protein, Urine 2+ (Neg); Specific Gravity, Urine 1.025 (1.003-1.022); Urobilinogen, Urine NORM (Normal)
[2024-12-11 19:47] LABS: Bacteria Many /hpf; Red Blood Cells, Urine 0-2 /hpf (0-2); Squamous Epithelial Cells Few /hpf (Few)
[2024-12-11] MEDS ORDERED: Famotidine 20 MG Tab PO SCH (21:00)
[2024-12-11] MEDS ORDERED: Lactobacil 2-S.Thermo-Bifido 1 1 Cap PO SCH (21:00)
--- NOTE | 2024-12-11 21:40 | NUR ---
UPDATE: THIS RN SPOKE WITH NOC RESIDENT REGARDING PT HR. HR SPIKING TO 140'S AT THIS TIME WITH A RANGE BETWEEN 100-140'S. BP STABLE AT THIS TIME. AMIO GTT INFUSING. MEDS TO BE REVIEWED BY NOC RESIDENT.
[2024-12-11] MEDS ORDERED: Metoprolol Tartrate 1 MG/ML 5 ML VIAL IV PRN (22:10)
[2024-12-12] VITALS: BP 90/52
[2024-12-12 03:30] VITALS: BP 104/86
[2024-12-12 05:08] LABS: PCO2 Arterial 33.5 mmHg (35-45); PO2 Arterial 67.4 mmHg (80-100); pH Blood Arterial 7.46 (7.35-7.45)
--- NOTE | 2024-12-12 05:56 | NUR ---
UPDATE: PT PO2 VIA ABG WAS 67.4 THIS AM. 2L O2 VIA NC APPLIED. SPO2 CURRENTLY 97% NO S/S ACUTE DISTRESS.
[2024-12-12 05:59] LABS: Albumin, Blood 2.7 g/dL (3.4-5.0); Albumin/Globulin Ratio 0.8 (0.8-1.8); Bilirubin, Total 0.6 mg/dL (0.1-1.0); Bun/Creatinine Ratio 27.3 (12.0-20.0); Creatinine, Blood 0.7 mg/dL (0.40-1.00); Globulin, Blood 3.4 g/dL (2.2-4.0); Magnesium, Blood 2.1 mg/dL (1.6-2.4); Potassium, Blood 4.4 mmol/L (3.5-5.5); Total Protein, Blood 6.1 g/dL (6.4-8.2)
--- NOTE | 2024-12-12 06:33 | NUR ---
SHIFT SUMMARY PT REMAINS ON AMIO GTT. HR HAS BEEN BETWEEN 100'S TO 140'S THIS SHIFT. REQUIRED 1 IVP METOPROLOL PER EMAR ORDERS. HR CURRENTLY 90'S-100'S. PT PO2 LOW VIA ABG THIS AM, SEE PREVIOUS NOTE. PT NOW ON 2L O2 VIA NC.
[2024-12-12 07:31] VITALS: BP 112/77
[2024-12-12] MEDS ORDERED: Enoxaparin 40 MG/0.4 ML SYR SC SCH (09:00)
[2024-12-12 11:46] VITALS: BP 116/95
--- NOTE | 2024-12-12 13:57 | NUR ---
UPDATE: VESSEL SLAG WORKER AT BEDSIDE
--- NOTE | 2024-12-12 15:07 | NUR ---
MET WITH FAMILY AND CASINO CAGE SUPERVISOR. FAMLY EXPRESSED CONCERNS ABOUT PATIENTS DECISION MAKING ABLILITY AND SELF CARE. WE DISCUSSED THIS WITH HEALTH RECORDS TECHNOLOGY TEACHER AND PROVIDER AND PLACED COG EVAL. CARE COORDINATION PROVIDED OPTIONS FOR POST HOSPITAL ASSISTANCE. PC WILL CONTUNUE TO SUPPORT
--- NOTE | 2024-12-12 17:33 | NUR ---
SHIFT SUMMARY: PT ALERT, ORIENTED TO SELF AND PLACE. EASILY FORGETFUL. POOR HISTORIAN. BP STABLE. HR REMAINS AFIB 90'S. AMIO D/C THIS AFTERNOON. AFEBRILE. SPO2 >96% ON ROOM AIR. LUNG SOUNDS CLEAR THROUGHOUT. RESPIRATIONS EVEN AND UNLABORED. ABD SOFT, NON TENDER, BOWEL SOUNDS +. PULSES PALPABLE. PT WITH SCAB LIKE RASH THROUGHOUT. FAMILY AT BEDSIDE THIS AFTERNOON, EXPRESSED CONCERNS OF PT RETURNING HOME. COGNITIVE EVAL ORDERED FOR 12/13/24. BED IN LOW, CALL LIGHT IN REACH, WILL REPORT TO ONCOMING RN.
[2024-12-12 19:51] VITALS: BP 108/77
[2024-12-12] MEDS ORDERED: Digoxin 0.25 MG Tab PO SCH (20:00)
[2024-12-12] MEDS ORDERED: Metoprolol Tartrate 25 MG Tab PO SCH (20:00)
[2024-12-12] MEDS ORDERED: Metoprolol Tartrate 1 MG/ML 5 ML VIAL IV PRN (20:05)
[2024-12-12] MEDS ORDERED: Atorvastatin 10 MG Tab PO SCH (21:00)
[2024-12-13] VITALS (14 sets, daily range): BP systolic 61–134; BP diastolic 48–94
--- NOTE | 2024-12-13 01:07 | NUR ---
SHIFT SUMMARY- PT NEEDED ENCOURAGEMENT TO TAKE THE FEW MEDS SHE DID TAKE. NEURO: ALERT TO SELF AND PLACE. PERRLA. EQUAL STRENGGTH THROUGHOUT. GENERALIZED WEAKNESS. LUNGS: COARSE UPPER LOBES, DIMINISHED BASES ON RA. CARDIAC: PO DIG AND METOPROLOL STARTED. AFIB 80'S-130'S. KEEGAN BLE. TRACE EDEMA GENERALIZED, +1 BLE. GI/: NEW PUREWICK PLACED.
[2024-12-13 06:51] LABS: Hematocrit 42.3 % (33.0-51.0); Hemoglobin 13.7 g/dL (11.5-16.0); Mean Corpuscular HGB Conc 32.4 g/dL (31.5-36.5); Mean Corpuscular Volume 93 fL (80-100); Mean Platelet Volume 10.5 fL (9.1-12.4); Platelet Count 210 K/mm3 (150-400); RDW Coefficient Variation 14.6 % (11.7-14.2); RDW Standard Deviation 49.6 fL (35.1-46.3); Red Blood Cell Count 4.57 M/mm3 (3.80-5.20); White Blood Cell Count 12.23 K/mm3 (4.00-11.30)
[2024-12-13 07:22] LABS: Albumin, Blood 2.6 g/dL (3.4-5.0); Anion Gap 10 mmol/L (3-11); Blood Urea Nitrogen 23 mg/dL (8-24); CO2, Blood 26 mmol/L (21-32); Chloride, Blood 110 mmol/L (98-108); Creatinine, Blood 0.92 mg/dL (0.40-1.00); Digoxin (Lanoxin) 0.66 ug/mL (0.80-2.00); Glomerular Filtration Rate 64 (60-); Glucose, Blood 108 mg/dL (70-99); Magnesium, Blood 2.1 mg/dL (1.6-2.4); Phosphorus, Blood 3.2 mg/dL (2.5-4.9); Potassium, Blood 4.2 mmol/L (3.5-5.5); Sodium, Blood 142 mmol/L (136-145)
[2024-12-13] MEDS ORDERED: Digoxin 0.25 MG Tab PO ONE (08:00)
[2024-12-13] MEDS ORDERED: Midodrine 5 MG Tab PO PRN (08:05)
[2024-12-13] MEDS ORDERED: Famotidine 20 MG Tab PO SCH (09:00)
[2024-12-13] MEDS ORDERED: Furosemide 20 MG Tab PO SCH (09:00)
[2024-12-13] MEDS ORDERED: Empagliflozin 10 MG TAB PO SCH (09:00)
[2024-12-13] MEDS ORDERED: Spironolactone 25 MG Tab PO SCH (09:00)
[2024-12-13] MEDS ORDERED: Furosemide 10 MG/ML 4ML Vial IV SCH (09:00)
[2024-12-13] MEDS ORDERED: Losartan Potassium 25 MG Tab PO SCH (09:00)
[2024-12-13] MEDS ORDERED: Furosemide 40 MG Tab PO SCH (10:25)
--- NOTE | 2024-12-13 19:22 | NUR ---
SHIFT NOTE: PT A/OX3 SELF, TIME, AND PLACE. SHE HAD A COG EVAL DONE TODAY BY . SHE IS ON RA WITH SP02>90%. SHE IS IN AFIB WITH RATES IN LOW 110S. SBP WAS SOFT, NOTIFIED, PT RESPONDED TO MIDODRINE GIVEN PER EMAR. PT UP TO CHAIR T/O MOST OF SHIFT. SHE AMBULATES WITH 1P ASSIST AND FWW. SCABS SCATTERED ON HER COCCYX. PT TOLERATES MEDICATIONS WHOLE WITH WATER. CARE CONTINUES
[2024-12-14] VITALS (9 sets, daily range): BP systolic 75–139; BP diastolic 46–108
--- NOTE | 2024-12-14 00:05 | NUR ---
SHIFT SUMMARY NEURO: ALERT TO SELF PLACE, AND ABLE TO RECALL MONTH AND YEAR. PERRLA. MOVES ALL EXTREMETIES EQUALLY. LUNGS: DIMINISHED BASES. INTERMITTENT COARSNESS. LATENT COUGH AFTER SWALLOWING. ON RA. CARDIAC: SIGNIFICANT AFIB 80'S-150'S. AVERAGE HR IS TRENDING UP. PRN METOPROLOL GIVEN. LOW SYSTOLIC BLOOD PRESSURES. TRACE EDEMA BLE. KEEGAN BLE. PULSES PALPABLE THROUGHOUT. NO CALF PAIN. GI/: WICKING DEVICE IN PLACE. CLEAR/YELLOW URINE. PT EDUCATED TO AVOID SCRATCHING BOTTOM. BRIEF IN PLACE TO MINIMIZE CONTACT.
[2024-12-14 05:33] LABS: Albumin, Blood 2.5 g/dL (3.4-5.0); Anion Gap 11 mmol/L (3-11); Blood Urea Nitrogen 29 mg/dL (8-24); Bun/Creatinine Ratio 35.2 (12.0-20.0); CO2, Blood 24 mmol/L (21-32); Calcium, Blood 8.5 mg/dL (8.5-10.1); Chloride, Blood 112 mmol/L (98-108); Creatinine, Blood 0.82 mg/dL (0.40-1.00); Digoxin (Lanoxin) 0.63 ug/mL (0.80-2.00); Glomerular Filtration Rate 73 (60-); Glucose, Blood 105 mg/dL (70-99); Magnesium, Blood 2.2 mg/dL (1.6-2.4); Phosphorus, Blood 3.7 mg/dL (2.5-4.9); Potassium, Blood 3.8 mmol/L (3.5-5.5); Sodium, Blood 143 mmol/L (136-145)
[2024-12-14] MEDS ORDERED: Digoxin 0.5 MG in NS 8 ML IV ONE (10:00)
[2024-12-14] MEDS ORDERED: Digoxin 0.25 MG in NS 4 ML IV SCH (17:00)
--- NOTE | 2024-12-14 18:13 | NUR ---
SHIFT SUMMARY; ASSUMED CARE AT 0700. A/A/0X2-3, INTERMITANT CONFUSION. INCONTINANT DURING SHIFT, PURWICK IN PLACE. UP TO CHAIR FOR MEALS WITH 1P ASSIST AND FWW. VSS, MEDICATED PER EMAR. HR IN AM 120-140, DRECREASED TO 80-90 BY END OF SHIFT. REPOSITIONS SELF IN BED, COOPERATIVE WITH CARE. WILL CONTINUE TO MONITOR AND TREAT UNTIL REPORT GIVEN TO ONCOMING CRISTINA RN.
[2024-12-15] VITALS (7 sets, daily range): BP systolic 95–126; BP diastolic 68–86
[2024-12-15 05:22] LABS: Albumin, Blood 2.7 g/dL (3.4-5.0); Anion Gap 10 mmol/L (3-11); Blood Urea Nitrogen 28 mg/dL (8-24); Bun/Creatinine Ratio 33.9 (12.0-20.0); CO2, Blood 24 mmol/L (21-32); Calcium, Blood 9.1 mg/dL (8.5-10.1); Chloride, Blood 110 mmol/L (98-108); Creatinine, Blood 0.83 mg/dL (0.40-1.00); Digoxin (Lanoxin) 2.45 ug/mL (0.80-2.00); Glomerular Filtration Rate 72 (60-); Glucose, Blood 118 mg/dL (70-99); Phosphorus, Blood 3.3 mg/dL (2.5-4.9); Potassium, Blood 3.8 mmol/L (3.5-5.5); Sodium, Blood 140 mmol/L (136-145)
--- NOTE | 2024-12-15 06:13 | NUR ---
SHIFT SUMMARY BLOOD PRESSURES MORE STABLE THIS SHIFT. HR UP TO 160'S BEFORE DIG. NO PRN METOPROLOL NEEDED AFTER DIG TONIGHT. NO OTHER CHANGES.
[2024-12-15] MEDS ORDERED: Metoprolol Succinate 50 MG TABCR PO SCH (09:00)
[2024-12-15] MEDS ORDERED: Furosemide 40 MG Tab PO SCH (09:00)
[2024-12-15] MEDS ORDERED: Furosemide 20 MG Tab PO SCH (09:00)
--- NOTE | 2024-12-15 17:13 | NUR ---
SHIFT SUMMARY: PT HAS BEEN ALERT, ORIENTED TO SELF, LOCATION, SOME SITUATION, UNSURE OF EXACT DATE. PT ANSWERS QUESTIONS APPROPRIATELY, HAS BEEN COOPERATIVE W/CARE. RA SATS >93%. AFIB ON MONITOR, RATE THIS AM WAS 80s-100s, THEN PT WAS OOB TO RECLINER FOR BREAKFAST AND HR TRENDED TO 110s-160 BUT NOT SUSTAINING ELEVATED. AM MEDICATIONS PROVIDED PER EMAR, HR TRENDED BACK DOWN TO 80s-100s. PUREWICK CONTINUES SET TO LOW CONT SUCTION. PT TOLERATING HEART HEALTHY DIET. CURRENT PLAN IS TO REASSESS LAB VALUES IN THE AM AND EVALUATE APPROPRIATENESS FOR DC HOME W/FAMILY AND HOME HEALTH IN PLACE. AT THIS TIME PT IS RESTING QUIETLY IN ROOM W/ CALL LIGHT IN REACH.
--- NOTE | 2024-12-15 20:45 | NUR ---
ASSUMED CARE OF THID PATIENT AT 1915. PATIENT IS A+O X3, CANNOT TELL ME THAT DATE. PT ABOUT TO ANSWER CALL OTHER QUESTIONS CORRECTLY AND REQUESTED HER DINNER TRAY DURING BEDSIDE SHIFT REPORT. PT ATE 60% OF HER DINNER AND DRANK 200mls. PT IS ON TELE W/ HR IN THE LOW 100s AT THIS TIME. PATIENT DENIES CHEST PAIN/ PRESSURE. PT NOW SITTING UP IN BED WATCHING TV. CALL LIGHT IN REACH.
--- NOTE | 2024-12-15 21:30 | NUR ---
REPORT GIVEN TO MEDICAL FLOOR RN LESVIA.
--- NOTE | 2024-12-15 21:51 | NUR ---
TRANSFER NOTE HANDOFF RECEIVED FROM DIESEL ENGINE OPERATORNABEEL CORDOVA. PT ARRIVED TO FLOOR VIA GURNEY. PT ORIENTED TO UNIT CALL BUTTON WITHIN REACH. TELEMETRY IN PLACE. PERSONAL POSSESSIONS WITH PT.
--- NOTE | 2024-12-15 21:55 | NUR ---
PT MOVED TO MEDICAL FLOOR, PERSONAL BELONGING WITH HER.
[2024-12-16 03:44] VITALS: BP 85/73
--- NOTE | 2024-12-16 04:05 | NUR ---
METOPROLOL GIVEN TELEMETRY CALLED AND INFORMED THAT THE PATIENT'S HR IS 150'BPM SUSTAINED. METOPROLOL GIVEN. VITALS ASSESSED. BP SOFT, MAP IS GOOD.
--- NOTE | 2024-12-16 04:12 | NUR ---
SHIFT SUMMARY ADMITTED FOR AFIB W/RVR. FULL CODE. PLAN IS FOR HOME W/HH. TELEMETRY: AFIB @ 90 BPM. CARDIAC DIET. INCONTINENT - PUREWICK IN PLACE. SHE IS A&O X2-3. ON RA. PALLIATIVE CARE IS CONSULTED. PHYSICAL AND OCCUPATIONAL THERAPIES ARE CONSULTED. 1 ASSIST W/FWW. SHE IS ON XARELTO. ONE EPISODE OF SUSTAINED 150'S HR. SEE PREVIOUS NOTE. MONITORING DIGOXIN LABS.
[2024-12-16 07:03] LABS: Anion Gap 10 mmol/L (3-11); Blood Urea Nitrogen 25 mg/dL (8-24); Bun/Creatinine Ratio 28.5 (12.0-20.0); CO2, Blood 26 mmol/L (21-32); Calcium, Blood 9.2 mg/dL (8.5-10.1); Chloride, Blood 106 mmol/L (98-108); Creatinine, Blood 0.88 mg/dL (0.40-1.00); Digoxin (Lanoxin) 1.96 ug/mL (0.80-2.00); Glomerular Filtration Rate 67 (60-); Glucose, Blood 99 mg/dL (70-99); Potassium, Blood 3.9 mmol/L (3.5-5.5); Sodium, Blood 138 mmol/L (136-145)
[2024-12-16 07:11] VITALS: BP 121/70
[2024-12-16] MEDS ORDERED: Metoprolol Succinate 50 MG TABCR PO SCH (10:00)
[2024-12-16 11:30] VITALS: BP 102/56
[2024-12-16 15:16] VITALS: BP 123/72
--- NOTE | 2024-12-16 17:10 | NUR ---
NO ACUTE CHANGES THIS SHIFT. PT CALLS APPROPRIATELY, HAS NOT TRIED TO GET OF BED UNSAFELY THIS SHIFT. AFIB 80-90S. 1 ASSIST TO BSC/CHAIR, MOVES SLOWLY, DOES NOT FEEL CONFIDENT IN HERSELF, REQUIRES MUCH REASSURANCE WITH AMBULATION. R/A DENIES SOB, DENIES CHEST PAIN. PT DID STATE SHE FELT DIZZY WITH STAND PIVOT TRANSFER FROM CHAIR TO CHAIR. PT BLE ELEVATED, POOR CIRCULATION NOTED. PT DENIES GENERALIZED PAIN. PT REFUSED ORAL CARE THIS SHIFT.
[2024-12-16 19:24] VITALS: BP 101/80
[2024-12-17] VITALS (9 sets, daily range): BP systolic 91–105; BP diastolic 47–76
--- NOTE | 2024-12-17 03:34 | NUR ---
SHIFT SUMMARY ADMITTED FOR AFIB W/RVR. FULL CODE. PLAN IS FOR DC HOME W/HH WHEN STABLE. TELEMETRY: AFIB @ 90 BPM. NO EVENTS REPORTED BY TELEMETRY SO FAR THIS SHIFT. SHE IS IMPULSIVE. BED ALARM IS ACTIVE. SHE IS ON XARELTO. A&O X3, FORGETFUL. ON RA. CARDIAC DIET. PUREWICK IN PLACE FOR INCONTINENCE.
[2024-12-17] MEDS ORDERED: Digoxin 0.125 MG Tab PO SCH (09:00)
--- NOTE | 2024-12-17 10:15 | NUR ---
pt noted to have slurred speech with left side droop mouth. dr. velázquez notifed. md at bedside for assesment.
--- NOTE | 2024-12-17 11:12 | NUR ---
PT BACK IN ROOM AFTER IMAGING COMPLETE, PENDING RESULTS. PT REPORTS BEING TIRED, SLURRING WORDS. BED ALARM MICROFABRICATION ENGINEER MANAGER LIGHT IN REACH,
--- NOTE | 2024-12-17 15:27 | NUR ---
Upon initial assessment, this student nurse finds pt difficult to wake. V/S and blood sugar are within normal range. Pt wakes up briefly and then quickly falls back asleep. Slurred speech and a slight left mouth droop are notable when pt is awake. Pt also shows a left sided gaze for about 5 seconds. Pt refuses pupil checks. Provider notified that the pt shows significant neuro changes. STAT CT ordered. Morning meds given before pt is taken to CT. Provider orders MRI. Information obtained from health care service liaison representative for MRI screening form. Health care service liaison representative updated on status of pt. Pt taken to MRI around 1450, pending results. Pt slept for most of the day, difficult to arrouse. aware.
--- NOTE | 2024-12-17 16:37 | NUR ---
PT REMAINS SOMULENT AND DIFFICULTLY STAYING AWAKE. FAMILY AT BEDSIDE STATES THIS IS NOT NORMAL FOR PATIENT, MRI RESULTS IN. MILO SRINIVASAN WILL COME TO DISCUSS RESULTS WITH DAUGHTER. PT DECLINED ALL MEALS, WILL WAKE BRIEFLY BUT THEN FALLS RIGHT BACK TO SLEEP. CBG 134.
--- NOTE | 2024-12-17 18:22 | NUR ---
PT SITTING UP ALERT AND EATING DINNER.
[2024-12-18] VITALS (7 sets, daily range): BP systolic 96–139; BP diastolic 52–77
--- NOTE | 2024-12-18 04:00 | NUR ---
SHIFT SUMMARY ADMITTED FOR AFIB W/RVR. FULL CODE. PLAN IS FOR HOME W/HH WHEN STABLE. TELEMETRY: AFIB @ 81 BPM. LEFT SIDED WEAKNESS, NOTED ON PREVIOUS SHIFT. SHE WAS REPORTED TO HAVE SLEPT THROUGH MOST OF PREVIOUS SHIFT. THIS SHIFT SHE HAS SLEPT SOUNDLY ALSO, BUT SHE IS EASY TO AWAKEN FOR ME. PALLIATIVE CARE IS CONSULTED. SHE IS ON XARELTO. SHE SEEMS QUITE WEAK. FOR AMBULATION YOU HAVE TO REPEAT SIMPLE CUES TO ACCOMPLISH TRANSFER FROM CHAIR TO BED. SHE IS INCONTINENT, PUREWICK IN PLACE. URINE SAMPLE NEEDED TO TEST FOR UTI. SHE IS REFUSING AT THIS TIME. SOFT BP NOTED AGAIN, MEDICATED PER EMAR. RX GIVEN WHOLE WITH APPLESAUCE.
[2024-12-18 08:51] LABS: Source, Urine Clean Catch
[2024-12-18 09:02] LABS: Appearance, Urine Hazy (Clear); Bilirubin, Urine Neg (Neg); Blood, Urine Neg (Neg); Color, Urine Yellow (P-Yellow); Glucose Qualitative, Urine 4+ (Neg); Ketones, Urine Neg (Neg); Leukocyte Esterase, Urine 1+ (Neg); Nitrite, Urine Neg (Neg); Protein, Urine Neg (Neg); Urobilinogen, Urine NORM (Normal)
[2024-12-18 09:23] LABS: Hemoglobin 18.7 g/dL (11.5-16.0); Mean Corpuscular HGB 29.5 pg (26.0-34.0); Mean Corpuscular HGB Conc 31.9 g/dL (31.5-36.5); Mean Corpuscular Volume 93 fL (80-100); Mean Platelet Volume 10.6 fL (9.1-12.4); Platelet Count 330 K/mm3 (150-400); RDW Coefficient Variation 14.4 % (11.7-14.2); RDW Standard Deviation 49.7 fL (35.1-46.3); Red Blood Cell Count 6.33 M/mm3 (3.80-5.20); White Blood Cell Count 12.03 K/mm3 (4.00-11.30)
[2024-12-18 09:33] LABS: Hematocrit 58.6 % (33.0-51.0)
[2024-12-18 09:34] LABS: Bun/Creatinine Ratio 30.3 (12.0-20.0); Creatinine, Blood 1.19 mg/dL (0.40-1.00); Potassium, Blood 4.4 mmol/L (3.5-5.5)
[2024-12-18 09:59] LABS: Bacteria Many /hpf; Hyaline Casts 0-2 /lpf (0-2)
[2024-12-18 10:00] LABS: Red Blood Cells, Urine 0-2 /hpf (0-2)
[2024-12-18 10:01] LABS: Squamous Epithelial Cells Mod /hpf (Few)
[2024-12-18] MEDS ORDERED: CefTRIAXone Sodium 1,000 MG in NS 100 ML IV ONE (11:00)
--- NOTE | 2024-12-18 16:15 | NUR ---
GEAR FINISHER ALERTED THIS RN THAT PT HAD 4.1 SECOND PAUSE. PT DENIES CHEST PAIN DENIES DIZZINESS, MD NOTIFIED. PER MD, MEDICATION DOSE CHANGED FOR TOMORROW.
--- NOTE | 2024-12-18 18:15 | NUR ---
PT HAS BEEN MORE ALERT THIS SHIFT COMPARED TO YESTERDAY SHIFT. PT STILL VERY DROWSY, BUT HAS STAYED AWAKE DURING MEALS. ANSWERS QUESTIONS APPROPRIATELY. ELECTRIC MOTOR REPAIR SUPERVISOR NOTED PAUSES IN HR THROUGHOUT SHIFT. LONGEST 4.1 SECOND PAUSE. PT HR HAS BEEN 50-70, BUT DID TOUCH DOWN TO 30-40. MD AWARE, SEE UPDATED MEDICATION ORDERS. PT IS BEING TREATED FOR UTI WITH IV ANTIBIOTICS. FAMILY CAME TO SEE PT THIS AFTERNOON, UPDATED FAMILY ON CARE PLAN. NOT IMPULSIVE ON THIS SHIFT, PT REPORTS BEING VERY TIRED.
[2024-12-19 03:33] VITALS: BP 93/60
[2024-12-19 05:58] LABS: Hematocrit 52.3 % (33.0-51.0); Hemoglobin 17.1 g/dL (11.5-16.0); Mean Corpuscular HGB 29.6 pg (26.0-34.0); Mean Corpuscular HGB Conc 32.7 g/dL (31.5-36.5); Mean Corpuscular Volume 91 fL (80-100); Mean Platelet Volume 10.3 fL (9.1-12.4); Platelet Count 276 K/mm3 (150-400); RDW Coefficient Variation 14.2 % (11.7-14.2); RDW Standard Deviation 47.6 fL (35.1-46.3); Red Blood Cell Count 5.77 M/mm3 (3.80-5.20); White Blood Cell Count 10.14 K/mm3 (4.00-11.30)
--- NOTE | 2024-12-19 06:20 | NUR ---
SHIFT SUMMARY: Pt is admitted for afib with RVR and is a full code. Is alert and able to make needs known. ADLs have been 1p during shift. Denies pain or discomfort when asked. Telly reports afib in the 80s with no events. Declined HS meds she stated that if she took them she was going to throw up. When asked if she had nausea she stated she did not. But again stated that if she were to take the meds she would throw up. When asked if anything would help with this she stated no and that she was not going to take the meds. aware.
[2024-12-19 06:50] LABS: Anion Gap 11 mmol/L (3-11); Blood Urea Nitrogen 34 mg/dL (8-24); Bun/Creatinine Ratio 35.5 (12.0-20.0); CO2, Blood 25 mmol/L (21-32); Calcium, Blood 8.8 mg/dL (8.5-10.1); Chloride, Blood 106 mmol/L (98-108); Creatinine, Blood 0.96 mg/dL (0.40-1.00); Digoxin (Lanoxin) 1.49 ug/mL (0.80-2.00); Glomerular Filtration Rate 61 (60-); Glucose, Blood 105 mg/dL (70-99); Sodium, Blood 138 mmol/L (136-145)
[2024-12-19 07:07] VITALS: BP 103/74
[2024-12-19] MEDS ORDERED: Metoprolol Succinate 50 MG TABCR PO SCH ×2 (09:00)
[2024-12-19 11:48] VITALS: BP 102/84
[2024-12-19] MEDS ORDERED: CefTRIAXone Sodium 1,000 MG in NS 100 ML IV SCH (12:00)
[2024-12-19] MEDS ORDERED: Morphine Sulfate 20 MG/1ML 1 ML Oral Syringe PO PRN (14:10)
[2024-12-19] MEDS ORDERED: LORazepam 2 MG/ML 1ML Injection IV PRN (14:10)
[2024-12-19 16:35] VITALS: BP 102/67
--- NOTE | 2024-12-19 18:44 | NUR ---
SHIFT SUMMARY PATIENT ALERT AND INTERACTIVE BUT CONFUSED AND PARANOID. PATIENT NEEDING ENCOURAGEMENT TO TAKE MEDICATIONS. PATIENT STATES THAT SHE DOES NOT TAKE HER MEDS AT HOME VERY OFTEN. PATIENT VERBALIZING THAT SHE WANTS TO GO HOME. DR. KAT NOTIFIED OF PATIENT'S RESISTANCE TO TAKE MEDICATIONS. DR. KAT AND CASE MANAGEMENT SPOKE WITH FAMILY. PLAN TO DISCHARGE PATIENT HOME ON HOSPICE.
[2024-12-19 19:45] VITALS: BP 104/83
--- NOTE | 2024-12-20 05:10 | NUR ---
SHIFT SUMMARY. NO ACUTE CHANGES NOTED THIS SHIFT. PATIENT TRANSITIONED TO COMFORT CARE ON 12/19/24-PLAN IS FOR PATIENT TO GO HOME WITH DAUGHTER AND HOSPICE. PATIENT IS PLEASANTLY CONFUSED AT TIMES, EASILY REDIRECTABLE. PATIENT RESTED ON AND OFF T/O SHIFT WITH RESPIRATIONS EQUAL AND UNLABORED. PATIENT IS ON RA SATTING >92%. PATIENT IN BED WITH BED LOCKED IN THE LOWEST POSITION WITH CALL LIGHT IN REACH. CARE IS ONGOING.
[2024-12-20] MEDS ORDERED: Metoprolol Succinate 25 MG TABCR PO SCH (09:00)
--- NOTE | 2024-12-20 11:50 | NUR ---
DISCHARGE NOTE PT ON COMFORT CARE, A&O2-3 DID NOT RECAL DATE. PT ADMITTED DUE TO PERSISTANT AFIB WITH RVR. COMFORT CARE ASSESSMENT COMPLETE THIS AM. CARE MANAGEMENT COORDINATED DISCHARGE TO HOME HOSPICE. PT GOING HOME ON HOSPICE. WENT OVER DISCHARGE INSTRUCTIONS/MEDS WITH PT AND DAUGHTER. PT LEFT WITH POLST FORM. NO ACUTE CHANGES THIS SHIFT PT ESCORTED TO PERSONAL VEHICLE VIA WHEELCHAIR BY OPTOMECHANICAL TECHNICIAN.
== END 2024-12-20 12:00 | disposition hospice, home (50) | DRG 308 ==
LOC: ER 12:14 → MEDS 14:07 → PCU 14:07 → MEDS 12-15 21:41
PROVIDERS: Emergency Medicine; Internal Medicine; ADMIT Hospitalist
DX: I48.0 Paroxysmal atrial fibrillation (principal); I50.23 Acute on chronic systolic (congestive) heart failure; F01.53 Vascular dementia, unspecified severity, with mood disturbance; G93.49 Other encephalopathy; F01.54 Vascular dementia, unspecified severity, with anxiety; E78.5 Hyperlipidemia, unspecified; I49.5 Sick sinus syndrome; I95.89 Other hypotension; J44.9 Chronic obstructive pulmonary disease, unspecified; I07.1 Rheumatic tricuspid insufficiency; I11.0 Hypertensive heart disease with heart failure; R47.81 Slurred speech; G51.0 Bell's palsy; Z86.73 Personal history of transient ischemic attack (TIA), and cerebral infarction without residual deficits; Z88.2 Allergy status to sulfonamides; Z79.01 Long term (current) use of anticoagulants; Z87.891 Personal history of nicotine dependence; Z60.2 Problems related to living alone
CPT/HCPCS: 36415; 36600; 70450; 70496; 70498; 70551; 71045; 80048; 80053; 80069; 80162; 81001; 82803; 82947; 83735; 83880; 84484; 85025; 85027; 87070; 87086; 87205; 92523; 93005; 93010; 93306; 94760; 94762; 97110; 97116; 97162; 97165; 97530; 97535; 99285-25; A9270; J0282; J0696; J0780; J1160; J7060; Q9967